=== PATIENT | female | born 1960 | race Caucasian/White ===

== ENCOUNTER 2017-04-18 14:37 | Inpatient (IN) | payer OTHER ==
[~2017-04-18] VITALS: Ht 152.4 cm; Wt 72.1 kg
--- NOTE | 2017-04-18 15:07 | ED GENERAL ADULT ---
History of Present Illness General Chief Complaint: General Adult Stated Complaint: TEARFUL AT [employer], UNABLE TO TELL WHY SHE IS HERE Source: patient, family Exam Limitations: language barrier Vital Signs & Intake/Output Vital Signs & Intake/Output Vital Signs Date Time Temp Pulse Resp B/P B/P Pulse O2 O2 Flow FiO2 Mean Ox Delivery Rate 04/18 2109 97.3 88 18 151/75 96 04/18 1939 98.6 104 18 141/65 96 Room Air 04/18 1739 97.4 101 16 167/80 97 Room Air 04/18 1443 98.0 105 18 156/97 97 Room Air Allergies Coded Allergies: NO KNOWN ALLERGIES (07/10/11) NKA PER ANTIBIOTIC ORDER SHEET (SJS) Reconcile Medications Calcium Carbonate/Vitamin D3 (Calcium 500 + D Tablet) (Unknown Strength) TABLET (Unknown Dose) PO DAILY SUPPLEMENT (Reported) Fish Oil/Dha/Epa (Fish Oil 1,200 MG Fish Oil) (Unknown Strength) CAPSULE ( Unknown Dose) PO DAILY SUPPLEMENT (Reported) Levothyroxine Sodium 112 MCG TABLET 1 TAB PO DAILY THYROID (Reported) Multivitamin (Multi-Day Vitamins) 1 EACH TABLET 1 TAB PO DAILY SUPPLEMENT ( Reported) Triage Note: PT TO ED C/O DIZZINESS. C/O NUMBNESS TO THE LEFT SIDE OF HER BODY AND PAIN AND NUMBNESS TO HER LEFT ARM THAT STARTED TODAY. PT TEARFUL IN TRIAGE. STATES SHE ALSO GETS PAINS TO THE RIGHT SIDE OF HER ABD X1 WEEK. PT NOTED TO BE MOVING HER LEFT ARM FINE WITH NO DIFFICULTY, ABLE TO GRASP ONTO THINGS. REPORTS THAT SHE FEELS PRESSURE TO HER HEAD INTERMITTENTLY AND THE DIZZINESS NOW ISNT BAD SHE STATES. Triage Nurses Notes Reviewed? yes Onset: Abrupt Duration: day(s): Timing: recent history HPI: 04/18/17 3:30 PM 57-year-old female presents to the emergency department complaining of left arm numbness, dizziness, epigastric abdominal pain, and nausea. She was apparently in her usual state of health until yesterday when the above symptoms started. The onset of the symptoms were abrupt. The duration of the symptoms is been approximately 24 hours. The severity is significant as his symptoms required her to come to the emergency department for care. Past History Travel History Traveled to [place] past 21 day No Medical History Any Pertinent Medical History? see below for history Surgical History Surgical History: none Psychosocial History Who do you live with Spouse Services at Home None What is your primary language Albanian Tobacco Use: Never used Family History Hx Contributory? No Review of Systems Review of Systems Constitutional: Reports: no symptoms. EENTM: Denies: blurred vision. Respiratory: Denies: short of breath. Cardiovascular: Denies: chest pain. GI: Reports: abdominal pain. Genitourinary: Reports: no symptoms. Musculoskeletal: Reports: no symptoms. Skin: Reports: no symptoms. Neurological/Psychological: Reports: no symptoms. Denies: weakness. Hematologic/Endocrine: Reports: no symptoms. Immunologic/Allergic: Reports: no symptoms. All Other Systems: Reviewed and Negative Physical Exam Physical Exam General Appearance: well developed/nourished, alert, awake, anxious, mild distress Head: atraumatic, normal appearance Eyes: Bilateral: normal appearance, PERRL, EOMI (NYSTAGMUS). Ears, Nose, Throat: normal pharynx, normal ENT inspection Neck: normal inspection, supple Respiratory: normal breath sounds, chest non-tender, no respiratory distress Cardiovascular: regular rate/rhythm, edema Peripheral Pulses: 4+ radial (R), 4+ radial (L) Gastrointestinal: soft, non-tender Back: normal range of motion Extremities: normal inspection, normal range of motion, no edema Neurologic/Psych: no motor/sensory deficits, awake, alert, oriented x 3 Skin: intact, normal color, warm/dry Core Measures ACS in differential dx? No CVA/TIA Diagnosis: No Severe Sepsis Present: No Septic Shock Present: No Progress Differential Diagnoses I considered the following diagnoses in my evaluation of the patient: [Aortic dissection, Cholecystitis, TIA, acute coronary syndrome, acute arterial occlusion, vestibular neuronitis, viral labyrinthitis, benign positional vertigo ] Plan of Care: Orders Procedure Date/time Status Heart Healthy Diet 04/19 B Active Add-on Test (ER Only) 04/18 2215 Active Patient Data 04/18 2212 Active URINALYSIS 04/[address] in observation 04/18 2156 Active Vital Signs 04/18 2156 Active Code Status 04/18 215 Active TROPONIN LEVEL 04/18 1822 Complete EKG 04/18 1822 Active TROPONIN LEVEL 04/18 1536 Complete COMPREHENSIVE METABOLIC PANEL 04/18 153 Complete CBC WITHOUT DIFFERENTIAL 04/18 153 Complete EKG 04/18 1536 Active Current Medications Sig/Germain Start time Last Medication Dose Stop Time Status Admin Sodium Chloride 1,000 ML ONCE ONE 04/18 1545 AC 04/18 (Normal Saline 0.9%) 04/18 2224 1650 Laboratory Tests 04/18/17 1842: Troponin I < 0.01 04/18/17 1635: Anion Gap 12, Estimated GFR > 60, BUN/Creatinine Ratio 38.0 H, Glucose 101 H, Calcium 9.2, Total Bilirubin 0.5, AST 24, ALT 30, Alkaline Phosphatase 85, Troponin I < 0.01, Total Protein 7.0, Albumin 4.4, Globulin 2.6, Albumin/ Globulin Ratio 1.7, CBC w Diff NO MAN DIFF REQ, RBC 4.58, MCV 91.4, MCH 30.8, RDW 13.4, MPV 7.6, Gran % 77.8 H, Lymphocytes % 15.2 L, Monocytes % 5.9, Eosinophils % 0.8, Basophils % 0.3, Absolute Granulocytes 9.2 H, Absolute Lymphocytes 1.8, Absolute Monocytes 0.7 H, Absolute Eosinophils 0.1, Absolute Basophils 0, PUBS MCHC 33.7 Labs were sent. The patient will be reevaluated (BARBIE GARCIA DO) Initial ED EKG: pending Departure Departure Disposition: STILL A PATIENT Condition: Stable Clinical Impression Primary Impression: TIA (transient ischemic attack) Secondary Impressions: Vertigo Referrals: NEELAM HUGHES,RISHABH Clarke (PCP/Family) Departure Forms: Customer Survey General Discharge Information Comments 04/18/17 8 pm The patient's CTA is negative for evidence of aortic dissection. She has unchanged EKG. Troponin is negative. Head CT negative. MPRESSION: 1. No acute vascular abnormality. No aortic dissection or aneurysm. 2. No acute findings in the chest, abdomen, or pelvis. No acute inflammatory changes. 3. Left upper pole hypoattenuating renal lesion is higher than simple fluid. Nonemergent renal ultrasound suggested to further evaluate. DICTATED BY: MAMI BUCHANAN MD DATE/TIME DICTATED:04/18/171750 QUALITY ASSURANCE COACH:MAICOL DATE/TIME TRANSCRIBED:04/18/171750 CONFIDENTIAL, DO NOT COPY WITHOUT APPROPRIATE AUTHORIZATION. <Electronically signed in Other Vendor System> SIGNED BY: MAMI BUCHANAN MD 04/18 8634 Observation Note Spoke With: CORRINE HUGHES,DIANA Physician Advisor Notified: TALHA HUGHES,LEONID Patel Place Patient In: Non-ED OBS Care Area Rationale for Observation: My rational for observation is as follows [the patient needs telemetry monitoring, MRI MRA in the a.m. She has ongoing vertigo and has states that she continues to have left arm numbness and had heaviness in the left leg and difficulty ambulating her symptoms started approximately 48 hours prior to arrival]. Critical Care Note Critical Care Note Critical Care Time: non-applicable
[2017-04-18] MEDS ORDERED: LEVOTHYROXINE112 MCG PO (15:58)
[2017-04-18] MEDS ORDERED: MULTI-DAY VITA1 EACH PO (15:58)
[2017-04-18] MEDS ORDERED: FISH OIL 1,2001 EACH PO (15:59)
[2017-04-18] MEDS ORDERED: CALCIUM 500 +1 EAC5 PO (15:59)
[2017-04-18 17:00] LABS: ABSOLUTE BASOPHIL COUNT 0 /CUMM (0.0-0.2); ABSOLUTE EOSINOPHIL COUNT 0.1 /CUMM (0.0-0.7); ABSOLUTE GRANULOCYTE CT 9.2 /CUMM (1.4-6.5); ABSOLUTE LYMPH COUNT 1.8 /CUMM (1.2-3.4); ABSOLUTE MONOCYTE COUNT 0.7 /CUMM (0.10-0.60); BASOPHIL % 0.3 % (0.0-2.0); EOSINOPHIL % 0.8 % (0-5); HEMATOCRIT 41.9 % (37-47); MEAN CORPUSCULAR HGB 30.8 PG (27.0-31.0); MEAN CORPUSCULAR HGB CONC 33.7 G/DL (33.0-37.0); MEAN CORPUSCULAR VOLUME 91.4 FL (81.0-99.0); MEAN PLATELET VOLUME 7.6 FL (7.4-10.4); PLATELET COUNT 248 /CUMM (130-400); RBC DISTRIBUTION WIDTH 13.4 % (11.5-14.5); RED BLOOD CELL CT 4.58 /CUMM (4.20-5.40); WHITE BLOOD CELL COUNT 11.8 /CUMM (4.8-10.8)
[2017-04-18 17:02] LABS: GRANULOCYTE % 77.8 % (42.2-75.2)
--- NOTE | 2017-04-18 18:03 | CT SCAN REPORT ---
STUDY PERFORMED: CTA OF THE CHEST, ABDOMEN AND PELVIS WITH AND WITHOUT CONTRAST CLINICAL INFORMATION: Near syncope. Left arm numbness. Epigastric pain. DESCRIPTION: Initial noncontrast CT of the chest was performed. Contrast timing was performed at the level of the distal descending thoracic aorta. Subsequently, arterial phase multidetector volumetric imaging was performed through the chest, abdomen and pelvis following the administration of 95 mL Optiray 350 intravenous contrast. No contrast reaction reported Sagittal and coronal reformatted images were obtained on the technologist workstation. Three-dimensional MIP reformatted imaging was performed and reviewed. Total exam dose-length product 1027 mGy-cm COMPARISON: None FINDINGS: Vascular: 1. Normal origin of the main coronary arteries. The ascending thoracic aorta is normal in course and caliber without dissection. 2. The aortic arch is normal in caliber without dissection. Normal 3 vessel branching configuration with the great vessels widely patent. 3. The descending thoracic aorta is normal in course and caliber without dissection. 4. The abdominal aorta is normal in course and caliber without dissection. 5. The origins of the celiac axis, superior mesenteric artery, and inferior mesenteric artery are widely patent. Single bilateral renal arteries are widely patent. 6. The iliac arteries and their branches are widely patent bilaterally. 7. No central pulmonary embolism. Nonvascular: CHEST: The central airways are patent. No focal or diffuse lung parenchymal abnormality. No pneumothorax or pleural effusion. The heart is of normal size. No pericardial effusion. No mediastinal lymphadenopathy. No axillary adenopathy or chest wall mass. ABDOMEN AND PELVIS: The liver is normal in size, shape, and attenuation. No focal hepatic lesion or biliary ductal dilatation is present. The gallbladder is unremarkable with no evidence of radiopaque gallstones, gallbladder wall thickening, or obvious pericholecystic inflammatory changes. The pancreas is normal in appearance. No mass or surrounding fluid. Adrenal glands are unremarkable. There is heterogeneous attenuation at the periphery of the spleen. This may be transient, related to the timing of contrast. No adjacent fluid. The kidneys are normal in size, shape, and attenuation. No hydronephrosis, hydroureter, or calculi. There is a 1.2 cm left upper pole hypoattenuating lesion which measures higher than simple fluid attenuation. Small hiatal hernia. The stomach is unremarkable. The small bowel is unremarkable. No obstruction. Normal appendix. No colonic wall thickening or inflammatory change. Scattered colonic diverticulosis. No diverticulitis. No hernia seen. No lymphadenopathy. The bladder is unremarkable. Uterus is not seen. No adnexal mass. BONY STRUCTURES: No acute or suspicious osseous abnormality. Degenerative changes of the spine. IMPRESSION: 1. No acute vascular abnormality. No aortic dissection or aneurysm. 2. No acute findings in the chest, abdomen, or pelvis. No acute inflammatory changes. 3. Left upper pole hypoattenuating renal lesion is higher than simple fluid. Nonemergent renal ultrasound suggested to further evaluate.
--- NOTE | 2017-04-18 18:53 | CT SCAN REPORT ---
EXAMINATION: CT HEAD WITHOUT CONTRAST CLINICAL INFORMATION: Dizziness. Headache. COMPARISON: None. TECHNIQUE: Contiguous axial imaging was performed from the skull base to vertex without intravenous contrast. DLP: 615 mGy-cm. FINDINGS: Although this examination is performed without contrast, a CT angiogram of the chest, abdomen, and pelvis was performed earlier in the day, approximately 3 hours prior. Residual contrast is present on this study. There is no evidence of acute intracranial hemorrhage or territorial infarction. No abnormal mass effect or midline shift is seen. Banks to white matter differentiation is well preserved. No definite extra-axial fluid collections are identified. No hydrocephalus. No significant volume loss. There is no abnormal attenuation within the brain parenchyma. The osseous structures and soft tissues are normal. The mastoid air cells are well-aerated. Mild opacification of all visualized paranasal sinuses. IMPRESSION: No acute intracranial pathology. Mild paranasal sinus opacification.
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
[2017-04-19 00:31] VITALS: BP 128/78
[2017-04-19 06:45] VITALS: BP 96/56
--- NOTE | 2017-04-19 07:45 | Patient Discharge Instructions ---
Discharge Instructions General Discharge Information You were seen/treated for: 1. CVA ( STROKE IN BASAL GANGLIA AND POSTERIOR CIRCULATION) WITH SYMPTOMS OF NUMBNESS AND TINGLING IN THE ARM AND VISUAL SYMPTOMS. 2. ABDOMINAL PAIN. Special Instructions: 1. BECCAE F/U WITH YOUR MAJOR GIFTS DIRECTOR WITH I WEEK OF DISCHARGE FOR OUTPATIENT VIJAY( TRANSESOPHAGEAL ECHO) AND 30 DAY HOLTER MONITOR. 2. PLEASE F/U WITH NEUROLOGY WITHIN 2 WEEKS OF DISCHARGE. 3.PLEASE F/U WITH YOUR GI DOCTOR WITHIN 2 WEEK OF DISCHARGE. 4. PLEASE F/U WITH PCP WITHIN 1 WEEK OF DISCHARGE. Diet Recommended Diet: Heart Healthy Activity Full Activity/No Limits: Yes ( TOLERATED) Acute Coronary Syndrome Inclusion Criteria At DC or during hospital stay patient has or had the following: ACS DIAGNOSIS No Discharge Core Measures Meds if any: Prescribed or Continued at Discharge Meds if any: NOT Prescribed or Continued at Discharge Congestive Heart Failure Inclusion Criteria At DC or during hospital stay patient has or had the following: CHF DIAGNOSIS No Discharge Core Measures Meds if any: Prescribed or Continued at Discharge Meds if any: NOT Prescribed or Continued at Discharge Cerebrovascular accident Inclusion Criteria At DC or during hospital stay patient has or had the following: CVA/TIA Diagnosis Yes Discharge Core Measures Meds if any: Prescribed or Continued at Discharge Antithrombotic Yes Statin (required if LDL =>70) Yes Anticoagulant No Meds if any: NOT Prescribed or Continued at Discharge Venous thromboembolism Inclusion Criteria VTE Diagnosis No VTE Type NONE VTE Confirmed by (Test) NONE Discharge Core Measures - Per Current guidelines, there needs to be overlap - treatment for the first 5 days of Warfarin therapy. - If discharged on Warfarin prior to 5 days of - overlap therapy, the patient will need to be - assessed for post discharge needs including - *Post discharge parental anticoagulation - *Warfarin and/or parental anticoagulation education - *Follow up date to check INR post discharge At least 5 days overlap therapy as Inpatient No Meds if any: Prescribed or Continued at Discharge Note: Overlap Therapy is Warfarin and Anticoagulant Meds if any: NOT Prescribed or Continued at Discharge
[2017-04-19 08:00] LABS: ABSOLUTE BASOPHIL COUNT 0 /CUMM (0.0-0.2); ABSOLUTE EOSINOPHIL COUNT 0.1 /CUMM (0.0-0.7); ABSOLUTE GRANULOCYTE CT 4.9 /CUMM (1.4-6.5); ABSOLUTE LYMPH COUNT 2.1 /CUMM (1.2-3.4); ABSOLUTE MONOCYTE COUNT 0.6 /CUMM (0.10-0.60); BASOPHIL % 0.3 % (0.0-2.0); EOSINOPHIL % 1.6 % (0-5); GRANULOCYTE % 62.8 % (42.2-75.2); HEMATOCRIT 39.9 % (37-47); MEAN CORPUSCULAR HGB 30.8 PG (27.0-31.0); MEAN CORPUSCULAR HGB CONC 33.6 G/DL (33.0-37.0); MEAN CORPUSCULAR VOLUME 91.7 FL (81.0-99.0); MEAN PLATELET VOLUME 7.4 FL (7.4-10.4); PLATELET COUNT 195 /CUMM (130-400); RBC DISTRIBUTION WIDTH 13.6 % (11.5-14.5); RED BLOOD CELL CT 4.35 /CUMM (4.20-5.40); WHITE BLOOD CELL COUNT 7.9 /CUMM (4.8-10.8)
--- NOTE | 2017-04-19 11:22 | ULTRASOUND REPORT ---
EXAMINATION: DUPLEX BILATERAL CAROTID ULTRASOUND CLINICAL INFORMATION: TIA/stroke. COMPARISON: None. TECHNIQUE: Duplex bilateral carotid US was performed using real-time ultrasound and Doppler techniques (integrating B-mode 2D vascular images, Doppler spectral analysis and color flow Doppler imaging). These techniques were utilized to interrogate the extracranial carotid and vertebral arteries bilaterally. The degree of stenosis is based off criteria similar to NASCET. FINDINGS: No plaque is seen at the carotid bifurcations or within the internal carotid arteries. All velocities are within normal limits. ADDITIONAL FINDINGS: The vertebral arteries show antegrade flow. The external carotid arteries show no significant stenosis. IMPRESSION: No evidence of a hemodynamically significant stenosis involving the internal carotid arteries.
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
--- NOTE | 2017-04-19 12:52 | MRI REPORT ---
EXAMINATION: MR BRAIN WITHOUT CONTRAST CLINICAL INFORMATION: Left-sided numbness. Assess for stroke/TIA. COMPARISON: CT scan of the head 04/18/2017. TECHNIQUE: MRI of the brain without contrast was obtained using routine sequences. FINDINGS: There are areas of restricted diffusion in the right parahippocampal gyrus extending into the posterior right basal ganglia, lateral to the right thalamus. These findings are consistent with areas of acute infarction. There is no evidence of hemorrhagic transformation. No other restricted diffusion is demonstrated. No mass effect or midline shift is seen. The ventricles and sulci commensurately prominent consistent with mild diffuse volume loss. There are also multiple scattered foci of increased T2 and FLAIR signal in the periventricular and subcortical white matter, consistent with sequelae of chronic microvascular ischemic disease. No extra-axial fluid collections are seen. The brainstem and cerebellum are normal. No pathologic magnetic susceptibility artifact is identified on the gradient refocused acquisition. The craniovertebral junction, marrow signal, and midline structures are normal. The major intracranial flow-voids at the level of the eklutna of Schmitt are preserved. The dural venous sinus flow-voids are maintained. The mastoid air cells are well-aerated. There is moderate mucoperiosteal thickening in the bilateral frontal, ethmoid, sphenoid and maxillary sinuses. The nasal septum is deviated to the right and there is a right-sided bony nasal septal spur. IMPRESSION: 1. There are areas of acute infarction in the right parahippocampal gyrus extending to the posterior right basal ganglia, without evidence of hemorrhagic transformation. 2. There are changes consistent with mild diffuse volume loss and there are sequelae of chronic microvascular ischemic. 3. This critical result was discussed with Josselyn Ravi by telephone on 04/19/2017 12:19 PM and it was ascertained that the content and urgency of the report was understood at the time of direct communication.
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
--- NOTE | 2017-04-19 13:59 | Event Note ---
Event Note Event Note: Patient was found to have an ischemic stroke in the right basal ganglia on MRI. Therefore the patient was converted into a full admission from an observation status.She has been started on aspirin 325, high-dose statin, IV fluids(low blood pressure) and neurology has been consulted. patient's echocardiogram result is still pending. She would require close monitoring on the case monitor to rule out arrhythmias/possible VIJAY and further imaging( CTA/MRA) might be required to find out the cause of stroke. PT/ OT evaluation have been ordered.
[2017-04-19 14:56] VITALS: BP 118/70
--- NOTE | 2017-04-19 15:44 | Cons- Neurology ---
General Information and HPI Consulting Request Date of Consult: 04/19/17 Requested By: TRIXIE PHILIP MD Reason for Consult: CVA Source of Information: patient, Resident MDs Exam Limitations: poor historian History of Present Illness: 57 year old woman with tells me she developed abdominal pain yesterday. Soon thereafter she became nauseous and vomited. Still a little later she rolls to walk into another room and felt dizzy as if she might pass out. Numbness of the left arm and leg developed but she is uncertain if this began concurrent with the dizziness or after. She still reports some numbness although symptoms have improved. Face was not involved. She denies any weakness or clumsiness and she denies neck pain or headache. There was no associated visual disturbance or confusion. CT of the head was done and unremarkable, MRI however was read as showing diffusion abnormalities through the parahippocampal gyrus up into the basal ganglia. On my personal review of the scan I do not see these abnormalities but I assume the radiologist probably has larger monitors with higher definition Allergies/Medications Allergies: Coded Allergies: NO KNOWN ALLERGIES (07/10/11) NKA PER ANTIBIOTIC ORDER SHEET (SJS) Home Med List: Calcium Carbonate/Vitamin D3 (Calcium 500 + D Tablet) (Unknown Strength) TABLET (Unknown Dose) PO DAILY SUPPLEMENT (Reported) Fish Oil/Dha/Epa (Fish Oil 1,200 MG Fish Oil) (Unknown Strength) CAPSULE ( Unknown Dose) PO DAILY SUPPLEMENT (Reported) Levothyroxine Sodium 112 MCG TABLET 1 TAB PO DAILY THYROID (Reported) Multivitamin (Multi-Day Vitamins) 1 EACH TABLET 1 TAB PO DAILY SUPPLEMENT ( Reported) Current Medications: Current Medications Sig/Germain Start time Last Medication Dose Route Stop Time Status Admin Acetaminophen 650 MG Q6P PRN 04/18 2300 AC PO Acetaminophen 1,000 MG ONCE ONE 04/18 1930 DC 04/18 IV 04/18 1931 1757 Acetaminophen 650 MG ONCE ONE 04/18 1845 DC PO 04/18 1846 Acetaminophen 0 .STK-MED ONE 04/18 1757 DC IV Aspirin 325 MG DAILY 04/19 1305 AC 04/19 PO 1410 Atorvastatin Calcium 40 MG 1700 04/19 1700 DC PO Atorvastatin Calcium 80 MG 1700 04/19 1700 AC PO Calcium/Vitamin D 500 MG DAILY 04/19 1000 AC 04/19 PO 1004 Dextrose/Sodium 1,000 ML Q20H 04/18 2315 AC 04/18 Chloride IV 04/19 1914 2309 Enoxaparin Sodium 40 MG DAILY 04/19 1000 AC 04/19 SC 1004 Ibuprofen 600 MG Q6P PRN 04/18 2300 AC 04/19 PO 0044 Levothyroxine Sodium 0.112 MG DAILY 04/19 1000 AC 04/19 PO 1004 Multivitamins 1 TAB DAILY 04/19 1000 AC 04/19 Therapeutic PO 1004 Ondansetron HCl 4 MG .STK-MED ONE 04/19 0015 DC IM 04/19 0016 Ondansetron HCl 4 MG ONCE ONE 04/18 2345 DC 04/19 IV 04/18 2346 0044 Sodium Chloride 1,000 ML BOLUS ONE 04/19 1345 AC 04/19 IV 04/19 1544 1410 Sodium Chloride 1,000 ML Q13H 04/19 1330 AC IV Sodium Chloride 1,000 ML ONCE ONE 04/18 1545 DC 04/18 IV 04/18 2224 1650 Review of Systems Review of Systems: ROS: A complete medical systems review was obtained. No pertinent complaints other than mentioned in the HPI were found. 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 Ambulation: independent IADLs Independent: shopping, housework, finances, transportation, medication admin. Exam & Diagnostic Data Vital Signs and I&O Vital Signs Date Time Temp Pulse Resp B/P B/P Pulse O2 O2 Flow FiO2 Mean Ox Delivery Rate 04/19 1456 98.9 84 18 118/70 96 Room Air 04/19 0645 98.2 78 18 96/56 95 Room Air 04/19 0031 97.8 109 20 128/78 93 Room Air 04/18 2243 98.0 81 16 135/78 96 Room Air 04/18 2109 97.3 88 18 151/75 96 04/18 1939 98.6 104 18 141/65 96 Room Air 04/18 1739 97.4 101 16 167/80 97 Room Air Intake & Output 04/19 1600 04/19 0800 04/19 0000 Intake Total 100 1000 Output Total Balance 100 1000 Intake, IV 1000 Intake, Oral 100 Patient 159 lb Weight Weight Reported by Patient Measurement Method Physical Exam: On exam the patient appeared generally well and in no distress. No carotid bruits and no cardiac murmur. No peripheral edema Mental status: Alert, attentive, fully oriented, no language errors, recall and general fund of knowledge seem intact Funduscopic unremarkable Visual mazariegos full , Eye movements full without nystagmus, pupils midsize equal round and reactive to light. Facial movement normal bilaterally Facial sensation normal bilaterally Hearing intact bilaterally Uvula elevates midline Tongue protrusion is midline Shoulder shrug symmetric Motor power and tone normal in all 4 extremities Sensation: Reports mild reduction in light touch and pin perception in the arm and leg on the left Tendon reflexes normal and symmetric without pathologic signs Coordination no ataxia Gait [testing deferred][normal] Last 48 Hours of Lab Results: Laboratory Tests 04/19 04/18 0640 2213 Chemistry Sodium (137 - 145 mmol/L) 141 Potassium (3.5 - 5.1 mmol/L) 3.8 Chloride (98 - 107 mmol/L) 106 Carbon Dioxide (22 - 30 mmol/L) 26 Anion Gap (5 - 16) 8 BUN (7 - 17 mg/dL) 14 Creatinine (0.5 - 1.0 mg/dL) 0.5 Estimated GFR (>60 ml/min) > 60 BUN/Creatinine Ratio (7 - 25 %) 28.0 H Hemoglobin A1c (4.2 - 5.8 %) 5.7 Triglycerides (<150 mg/dL) 139 Cholesterol (<200 MG/DL) 173 LDL Cholesterol, Calc (65 - 129 mg/dL) 104 HDL Cholesterol (40 - 60 mg/dL) 42 Cholesterol/HDL Ratio (0.00 - 4.23 %) 4 Vitamin B12 (239 - 931 pg/mL) 341 Hematology CBC w Diff NO MAN DIFF REQ WBC (4.8 - 10.8 /CUMM) 7.9 RBC (4.20 - 5.40 /CUMM) 4.35 Hgb (12.0 - 16.0 G/DL) 13.4 Hct (37 - 47 %) 39.9 MCV (81.0 - 99.0 FL) 91.7 MCH (27.0 - 31.0 PG) 30.8 RDW (11.5 - 14.5 %) 13.6 Plt Count (130 - 400 /CUMM) 195 MPV (7.4 - 10.4 FL) 7.4 Gran % (42.2 - 75.2 %) 62.8 Lymphocytes % (20.5 - 51.1 %) 27.3 Monocytes % (1.7 - 9.3 %) 8.0 Eosinophils % (0 - 5 %) 1.6 Basophils % (0.0 - 2.0 %) 0.3 Absolute Granulocytes (1.4 - 6.5 /CUMM) 4.9 Absolute Lymphocytes (1.2 - 3.4 /CUMM) 2.1 Absolute Monocytes (0.10 - 0.60 /CUMM) 0.6 Absolute Eosinophils (0.0 - 0.7 /CUMM) 0.1 Absolute Basophils (0.0 - 0.2 /CUMM) 0 PUBS MCHC (33.0 - 37.0 G/DL) 33.6 Urines Urinalysis LIGHT H Urine Color (YEL,AMB,STR) YEL Urine Clarity (CLEAR) CLEAR Urine pH (5.0 - 8.0) 6.0 Ur Specific [place] (1.001 - 1.035) 1.025 Urine Protein (NEG,<30 MG/DL) 30 H Urine Ketones (NEG) NEG Urine Nitrite (NEG) NEG Urine Bilirubin (NEG) NEG Urine Urobilinogen (0.1 - 1.0 EU/dl) 0.2 Ur Leukocyte Esterase (NEG) NEG Ur Microscopic SEDIMENT EXAMINED Urine RBC (0 - 5 /HPF) RARE Urine WBC (0 - 2 /HPF) RARE Ur Epithelial Cells (NONE,FEW) FEW Urine Crystals 3+ CA OX H Urine Bacteria (NEG/NONE) FEW H Urine Mucus (FEW,NONE) FEW Urine Hemoglobin (NEG) NEG Urine Glucose (N MG/DL) NEG 04/18 04/18 1842 1635 Chemistry Sodium (137 - 145 mmol/L) 141 Potassium (3.5 - 5.1 mmol/L) 4.0 Chloride (98 - 107 mmol/L) 104 Carbon Dioxide (22 - 30 mmol/L) 25 Anion Gap (5 - 16) 12 BUN (7 - 17 mg/dL) 19 H Creatinine (0.5 - 1.0 mg/dL) 0.5 Estimated GFR (>60 ml/min) > 60 BUN/Creatinine Ratio (7 - 25 %) 38.0 H Glucose (65 - 99 mg/dL) 101 H Calcium (8.4 - 10.2 mg/dL) 9.2 Total Bilirubin (0.2 - 1.3 mg/dL) 0.5 AST (14 - 36 U/L) 24 ALT (9 - 52 U/L) 30 Alkaline Phosphatase (<127 U/L) 85 Troponin I (< 0.11 ng/ml) < 0.01 < 0.01 Total Protein (6.3 - 8.2 g/dL) 7.0 Albumin (3.5 - 5.0 g/dL) 4.4 Globulin (1.9 - 4.2 gm/dL) 2.6 Albumin/Globulin Ratio (1.1 - 2.2 %) 1.7 TSH (0.270 - 4.200 uIU/mL) 1.090 Free T4 (0.64 - 1.79 ng/dL) 1.26 Total T3 (0.97 - 1.69 ng/mL) 1.07 Hematology CBC w Diff NO MAN DIFF REQ WBC (4.8 - 10.8 /CUMM) 11.8 H RBC (4.20 - 5.40 /CUMM) 4.58 Hgb (12.0 - 16.0 G/DL) 14.1 Hct (37 - 47 %) 41.9 MCV (81.0 - 99.0 FL) 91.4 MCH (27.0 - 31.0 PG) 30.8 RDW (11.5 - 14.5 %) 13.4 Plt Count (130 - 400 /CUMM) 248 MPV (7.4 - 10.4 FL) 7.6 Gran % (42.2 - 75.2 %) 77.8 H Lymphocytes % (20.5 - 51.1 %) 15.2 L Monocytes % (1.7 - 9.3 %) 5.9 Eosinophils % (0 - 5 %) 0.8 Basophils % (0.0 - 2.0 %) 0.3 Absolute Granulocytes (1.4 - 6.5 /CUMM) 9.2 H Absolute Lymphocytes (1.2 - 3.4 /CUMM) 1.8 Absolute Monocytes (0.10 - 0.60 /CUMM) 0.7 H Absolute Eosinophils (0.0 - 0.7 /CUMM) 0.1 Absolute Basophils (0.0 - 0.2 /CUMM) 0 PUBS MCHC (33.0 - 37.0 G/DL) 33.7 Imaging/Other Studies: MRI brain: 1. There are areas of acute infarction in the right parahippocampal gyrus extending to the posterior right basal ganglia, without evidence of hemorrhagic transformation. 2. There are changes consistent with mild diffuse volume loss and there are sequelae of chronic microvascular ischemic. Assessment/Plan Assessment: Left hemisensory deficit but otherwise completely normal bedside exam. MRI findings are out of proportion to the clinical picture, I will review images with the radiologist. The patient has been started on aspirin and a statin. Other than smoking she has no other modifiable vascular risks Recommendations: CTA or MRA of the intracranial circulation to rule out intracranial stenosis. Continue aspirin 81 MG daily and atorvastatin 40 MG daily Consult Acknowledgment - Thank you for your consult request.
--- NOTE | 2017-04-19 17:37 | ECHOCARDIOGRAM REPORT ---
ERYN CHÁVEZ Age: 57 : 1960 Gender: F Exam Date: 04/19/2017 09:06 Exam Location: [address] Ht (in): 60 Wt (lb): 159 BSA: 1.78 BP: 96 / 56 Ordering Physician: BIBI LO MD Referring Physician: BIBI LO MD Technologist: Camron Gipson [facility] Room Number: [id number] Indications: HYPERTENSION Rhythm: Sinus Technical Quality: Good FINDINGS Left Ventricle Normal left ventricular size, wall thickness and systolic function with no obvious regional wall motion abnormalities. Normal left ventricular diastolic filling pattern for age. The ejection fraction is visually estimated at >65 %. Right Ventricle The right ventricle is normal in size and function. Right Atrium The right atrium is normal in size. Left Atrium The left atrium is normal in size. The interatrial septum is intact. Mitral Valve The mitral valve is normal in structure and function. There is trace mitral regurgitation. Aortic Valve Structurally normal aortic valve without significant sclerosis or stenosis. There isno aortic regurgitation. Tricuspid Valve The tricuspid valve is normal in structure and function. There is trace tricuspid regurgitation. Unable to estimate the right ventricular systolic pressure. Pulmonic Valve Structurally normal pulmonic valve. There is no pulmonic regurgitation. Pericardium Normal pericardium without effusion. No pleural effusion. Great Vessels Normal aortic root dimension. The aortic arch and great vessels are well seen and are normal. CONCLUSIONS No significant chamber abnormalities. No significant valve abnormalities. Normal transthoracic echocardiogram. Physiologic valvular regurgitation. Curt Silveira M.D. (Electronically Signed) Final Date: 19 April 2017 17:37 MEASUREMENTS (Male / Female) Normal Values 2D ECHO LV Diastolic Diameter PLAX 3.9 cm 4.2 - 5.9 / 3.9 - 5.3 cm LV Systolic Diameter PLAX 2.8 cm 2.1 - 4.0 cm LV Fractional Shortening PLAX 28.2 % 25 - 46 % LV Ejection Fraction 2D Teich 55.2 % IVS Diastolic Thickness 1.1 cm LVPW Diastolic Thickness 1.0 cm LV Relative Wall Thickness 0.5 RV Internal Dim ED PLAX 2.8 cm 1.9 - 3.8 cm LVOT Diameter 1.8 cm Aortic Root Diameter 2.7 cm LA Systolic Diameter LX 2.4 cm 3.0 - 4.0 / 2.7 - 3.8 cm LA Volume 39.0 cm 18 - 58 / 22 - 52 cm Ascending Aorta Diameter 2.6 cm DOPPLER AV Peak Velocity 154.0 cm/s AV Peak Gradient 9.5 mmHg AV Mean Velocity 104.0 cm/s AV Mean Gradient 5.0 mmHg AV Velocity Time Integral 33.6 cm AI Deceleration [place] 107.0 cm/s AI Peak Velocity 319.0 cm/s AI Pressure Half Time 871.0 ms AI Peak Gradient 40.7 mmHg LVOT Peak Velocity 82.7 cm/s LVOT Peak Gradient 2.7 mmHg LVOT Mean Velocity 46.3 cm/s LVOT Mean Gradient 1.0 mmHg LVOT Velocity Time Integral 18.6 cm LVOT Stroke Volume 47.3 cm AV Area Cont Eq vti 1.4 cm AV Area Cont Eq pk 1.4 cm MV Peak Velocity 82.7 cm/s MV Peak Gradient 2.7 mmHg MV Mean Velocity 54.7 cm/s MV Mean Gradient 1.0 mmHg Mitral E Point Velocity 78.5 cm/s Mitral A Point Velocity 67.1 cm/s Mitral E to A Ratio 1.2 MV PHT Velocity 81.4 cm/s MV Deceleration [place] 310.0 cm/s MV Pressure Half Time 78.8 ms MV Area PHT 2.8 cm MV Deceleration Time 222.0 ms PV Peak Velocity 85.7 cm/s PV Peak Gradient 2.9 mmHg PV Mean Velocity 50.3 cm/s PV Mean Gradient 1.0 mmHg PV Velocity Time Integral 23.8 cm LV E' Lateral Velocity 11.4 cm/s Mitral E to LV E' Lateral Ratio 6.9 LV E' Septal Velocity 8.6 cm/s Mitral E to LV E' Septal Ratio 9.1
[2017-04-19 23:15] VITALS: BP 110/60
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
[2017-04-20 07:36] VITALS: BP 126/78
--- NOTE | 2017-04-20 12:06 | Cons- Cardiology ---
General Information and HPI Consulting Request Date of Consult: 04/20/17 Requested By: TRIXIE PHILIP MD Reason for Consult: Assess need for Holter monitoring in new subacute CVA patient Source of Information: patient, family Exam Limitations: no limitations History of Present Illness: This is a 57-year-old lady with hypothyroidism as the only past medical history , and a social history of 30 years of smoking presented with a one-day history of neurological deficits (left-sided hemiparesis of upper and lower extremity, dizziness and vertigo). On day of presentation, CT head did not show any acute intracranial pathology.However, MRI on 03/20 was remarkable for for acute infarction in the right parahippocampal gyrus extending to the posterior right basal ganglia and and a CTA head/neck on 03/21 noted a new cortical infarct involving the paramedian right septal lobe the next day. Carotid doppler and Echocardiogram on day of admission were unremarkable for any clinically significant stenosis, thrombus or valvular abnormality. No arrhythmias were noted on telemetry monitoring. CTA neck performed on 04/20/17 was suggestive of ascending aortic mural thrombus. Pertinent negative include no hx of STD, hyperlipidemia,hypercoagulable disease, CAD,vasculitis. Regarding family hx no family of history cardiac disease , malignancy, or hypercoagulable disorders either. Allergies/Medications Allergies: Coded Allergies: NO KNOWN ALLERGIES (07/10/11) NKA PER ANTIBIOTIC ORDER SHEET (SJS) Home Med List: Calcium Carbonate/Vitamin D3 (Calcium 500 + D Tablet) (Unknown Strength) TABLET (Unknown Dose) PO DAILY SUPPLEMENT (Reported) Fish Oil/Dha/Epa (Fish Oil 1,200 MG Fish Oil) (Unknown Strength) CAPSULE ( Unknown Dose) PO DAILY SUPPLEMENT (Reported) Levothyroxine Sodium 112 MCG TABLET 1 TAB PO DAILY THYROID (Reported) Multivitamin (Multi-Day Vitamins) 1 EACH TABLET 1 TAB PO DAILY SUPPLEMENT ( Reported) Past History Travel History Traveled to [place] past 21 day No Medical History Neurological: NONE EENT: NONE Cardiovascular: NONE Respiratory: NONE Gastrointestinal: NONE Hepatic: NONE Renal: NONE Musculoskeletal: NONE Psychiatric: NONE Endocrine: hypothyroidism Blood Disorders: NONE Cancer(s): NONE 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 Ambulation: independent IADLs Independent: shopping, housework, finances, transportation, medication admin. Exam & Diagnostic Data Vital Signs and I&O Vital Signs Date Time Temp Pulse Resp B/P B/P Pulse O2 O2 Flow FiO2 Mean Ox Delivery Rate 04/20 0736 99.1 79 16 126/78 95 Room Air 04/19 2315 98.4 83 18 110/60 93 Room Air 04/19 1456 98.9 84 18 118/70 96 Room Air Intake & Output 04/20 1600 04/20 0800 04/20 0000 04/19 1600 04/19 0800 04/19 0000 Intake Total 717 365 6489 100 1000 Output Total 1100 Balance 100 750 639 855 5435 Intake, IV 0 496 052 4224 Intake, Oral 100 650 500 100 Number 0 0 1 Bowel Movements Output, Urine 1100 Patient 72.121 kg Weight Weight Reported by Patient Measurement Method Physical Exam: General Appearance Alert, Oriented X3, Cooperative, No Acute Distress Skin No Rashes, No Breakdown Skin Temp/Moisture Exam: Warm/Dry HEENT Atraumatic, PERRLA, EOMI, Mucous Membr. moist/pink Neck Supple, No JVD Cardiovascular Regular Rate, Normal S1/S2, no m/g/r Lungs Clear to Auscultation, Normal Air Movement Abdomen Normal Bowel Sounds, Soft, No Tenderness, No Masses Neurological Normal Gait, Normal Speech, Strength at 5/5 X4 Ext, Normal Tone, Sensation slightly diminished on left side, Cranial Nerves 3-12 NL, Reflexes 2+ Extremities No Clubbing, No Cyanosis, No Edema, Normal Pulses Vascular Normal Pulses, Pulses Symmetrical Labs/Jeremy Results: Laboratory Tests 04/19 04/18 0640 2213 Chemistry Sodium (137 - 145 mmol/L) 141 Potassium (3.5 - 5.1 mmol/L) 3.8 Chloride (98 - 107 mmol/L) 106 Carbon Dioxide (22 - 30 mmol/L) 26 Anion Gap (5 - 16) 8 BUN (7 - 17 mg/dL) 14 Creatinine (0.5 - 1.0 mg/dL) 0.5 Estimated GFR (>60 ml/min) > 60 BUN/Creatinine Ratio (7 - 25 %) 28.0 H Hemoglobin A1c (4.2 - 5.8 %) 5.7 Triglycerides (<150 mg/dL) 139 Cholesterol (<200 MG/DL) 173 LDL Cholesterol, Calc (65 - 129 mg/dL) 104 HDL Cholesterol (40 - 60 mg/dL) 42 Cholesterol/HDL Ratio (0.00 - 4.23 %) 4 Vitamin B12 (239 - 931 pg/mL) 341 Hematology CBC w Diff NO MAN DIFF REQ WBC (4.8 - 10.8 /CUMM) 7.9 RBC (4.20 - 5.40 /CUMM) 4.35 Hgb (12.0 - 16.0 G/DL) 13.4 Hct (37 - 47 %) 39.9 MCV (81.0 - 99.0 FL) 91.7 MCH (27.0 - 31.0 PG) 30.8 RDW (11.5 - 14.5 %) 13.6 Plt Count (130 - 400 /CUMM) 195 MPV (7.4 - 10.4 FL) 7.4 Gran % (42.2 - 75.2 %) 62.8 Lymphocytes % (20.5 - 51.1 %) 27.3 Monocytes % (1.7 - 9.3 %) 8.0 Eosinophils % (0 - 5 %) 1.6 Basophils % (0.0 - 2.0 %) 0.3 Absolute Granulocytes (1.4 - 6.5 /CUMM) 4.9 Absolute Lymphocytes (1.2 - 3.4 /CUMM) 2.1 Absolute Monocytes (0.10 - 0.60 /CUMM) 0.6 Absolute Eosinophils (0.0 - 0.7 /CUMM) 0.1 Absolute Basophils (0.0 - 0.2 /CUMM) 0 PUBS MCHC (33.0 - 37.0 G/DL) 33.6 Urines Urinalysis LIGHT H Urine Color (YEL,AMB,STR) YEL Urine Clarity (CLEAR) CLEAR Urine pH (5.0 - 8.0) 6.0 Ur Specific [place] (1.001 - 1.035) 1.025 Urine Protein (NEG,<30 MG/DL) 30 H Urine Ketones (NEG) NEG Urine Nitrite (NEG) NEG Urine Bilirubin (NEG) NEG Urine Urobilinogen (0.1 - 1.0 EU/dl) 0.2 Ur Leukocyte Esterase (NEG) NEG Ur Microscopic SEDIMENT EXAMINED Urine RBC (0 - 5 /HPF) RARE Urine WBC (0 - 2 /HPF) RARE Ur Epithelial Cells (NONE,FEW) FEW Urine Crystals 3+ CA OX H Urine Bacteria (NEG/NONE) FEW H Urine Mucus (FEW,NONE) FEW Urine Hemoglobin (NEG) NEG Urine Glucose (N MG/DL) NEG 04/18 04/18 1842 1635 Chemistry Sodium (137 - 145 mmol/L) 141 Potassium (3.5 - 5.1 mmol/L) 4.0 Chloride (98 - 107 mmol/L) 104 Carbon Dioxide (22 - 30 mmol/L) 25 Anion Gap (5 - 16) 12 BUN (7 - 17 mg/dL) 19 H Creatinine (0.5 - 1.0 mg/dL) 0.5 Estimated GFR (>60 ml/min) > 60 BUN/Creatinine Ratio (7 - 25 %) 38.0 H Glucose (65 - 99 mg/dL) 101 H Calcium (8.4 - 10.2 mg/dL) 9.2 Total Bilirubin (0.2 - 1.3 mg/dL) 0.5 AST (14 - 36 U/L) 24 ALT (9 - 52 U/L) 30 Alkaline Phosphatase (<127 U/L) 85 Troponin I (< 0.11 ng/ml) < 0.01 < 0.01 Total Protein (6.3 - 8.2 g/dL) 7.0 Albumin (3.5 - 5.0 g/dL) 4.4 Globulin (1.9 - 4.2 gm/dL) 2.6 Albumin/Globulin Ratio (1.1 - 2.2 %) 1.7 TSH (0.270 - 4.200 uIU/mL) 1.090 Free T4 (0.64 - 1.79 ng/dL) 1.26 Total T3 (0.97 - 1.69 ng/mL) 1.07 Hematology CBC w Diff NO MAN DIFF REQ WBC (4.8 - 10.8 /CUMM) 11.8 H RBC (4.20 - 5.40 /CUMM) 4.58 Hgb (12.0 - 16.0 G/DL) 14.1 Hct (37 - 47 %) 41.9 MCV (81.0 - 99.0 FL) 91.4 MCH (27.0 - 31.0 PG) 30.8 RDW (11.5 - 14.5 %) 13.4 Plt Count (130 - 400 /CUMM) 248 MPV (7.4 - 10.4 FL) 7.6 Gran % (42.2 - 75.2 %) 77.8 H Lymphocytes % (20.5 - 51.1 %) 15.2 L Monocytes % (1.7 - 9.3 %) 5.9 Eosinophils % (0 - 5 %) 0.8 Basophils % (0.0 - 2.0 %) 0.3 Absolute Granulocytes (1.4 - 6.5 /CUMM) 9.2 H Absolute Lymphocytes (1.2 - 3.4 /CUMM) 1.8 Absolute Monocytes (0.10 - 0.60 /CUMM) 0.7 H Absolute Eosinophils (0.0 - 0.7 /CUMM) 0.1 Absolute Basophils (0.0 - 0.2 /CUMM) 0 PUBS MCHC (33.0 - 37.0 G/DL) 33.7 Diagnostic Data EKG Results No acute ischemic changes Other Results SERVICE DATE: 04/19/17-599 EXAM TYPE: MRI - MRI-HEAD W/O NOAH EXAMINATION: MR BRAIN WITHOUT CONTRAST CLINICAL INFORMATION: Left-sided numbness. Assess for stroke/TIA. COMPARISON: CT scan of the head 04/18/2017. TECHNIQUE: MRI of the brain without contrast was obtained using routine sequences. FINDINGS: There are areas of restricted diffusion in the right parahippocampal gyrus extending into the posterior right basal ganglia, lateral to the right thalamus. These findings are consistent with areas of acute infarction. There is no evidence of hemorrhagic transformation. No other restricted diffusion is demonstrated. No mass effect or midline shift is seen. The ventricles and sulci commensurately prominent consistent with mild diffuse volume loss. There are also multiple scattered foci of increased T2 and FLAIR signal in the periventricular and subcortical white matter, consistent with sequelae of chronic microvascular ischemic disease. No extra-axial fluid collections are seen. The brainstem and cerebellum are normal. No pathologic magnetic susceptibility artifact is identified on the gradient refocused acquisition. The craniovertebral junction, marrow signal, and midline structures are normal. The major intracranial flow-voids at the level of the [place] are preserved. The dural venous sinus flow-voids are maintained. The mastoid air cells are well-aerated. There is moderate mucoperiosteal thickening in the bilateral frontal, ethmoid, sphenoid and maxillary sinuses. The nasal septum is deviated to the right and there is a right-sided bony nasal septal spur. IMPRESSION: 1. There are areas of acute infarction in the right parahippocampal gyrus extending to the posterior right basal ganglia, without evidence of hemorrhagic transformation. 2. There are changes consistent with mild diffuse volume loss and there are sequelae of chronic microvascular ischemic. 3. This critical result was discussed with Josselyn Ravi by telephone on 04/19/2017 12:19 PM and it was ascertained that the content and urgency of the report was understood at the time of direct communication. DICTATED BY: MAYLIN SALES MD SERVICE DATE: 04/20/17- EXAM TYPE: CAT - CT HEAD ANGIOGRAM; CT NECK ANGIOGRAM EXAMINATION: CT HEAD ANGIOGRAM, CT NECK ANGIOGRAM CLINICAL INFORMATION: Evaluate for intracranial stenosis. Stroke and basal ganglia. COMPARISON: Brain MRI 04/19/2017. TECHNIQUE: Clockmaker images were obtained. A CT angiogram of the head and neck was performed in the arterial phase after the intravenous administration of 95 mL Optiray 320. Pre and delayed postcontrast images of the head were also obtained. MIP reconstructions were generated in multiple orientations at the acquisition workstation. Multiple three-dimensional surface rendered images and maximum intensity projection images were generated on a dedicated 3-D lab workstation. Total exam dose-length product 2554.99 mGy-cm FINDINGS: Head: Ill-defined foci of hypoattenuation involving the right inferolateral thalamus and the right parahippocampal gyrus coincide with the known ischemic changes demonstrated on the recent prior brain MRI from 04/19/2017. There is new loss of rowley-white matter differentiation involving the paramedian right occipital lobe consistent with a new cortical infarcts. There is no evidence of hemorrhagic transformation. No substantial intracranial mass effect and no midline shift. Lateral and third ventricles are normal. No hydrocephalus. Postcontrast images reveal no abnormal intracranial enhancement. The calvarium and skull base are intact. Mastoid air cells and middle ear cavities are well aerated. There is mild to moderate paranasal sinus disease. CT angiogram neck: There is an eccentric filling defect along the right lateral aspect of the ascending aortic arch best illustrated on axial image 68 of 614 series 3 that most likely represents a mural thrombus and potentially represents a source of embolic disease. The origins of the major aortic branches are widely patent. Common carotid arteries and carotid bifurcations are normal. There is no stenosis of the extracranial internal carotid arteries. The cervical segments of the vertebral arteries as well as their origins are widely patent. CT angiogram head: There is an occlusion within the P2 segment of the right posterior cerebral artery with partial reconstitution of contrast opacifying the distal vessels. The anterior, middle, and posterior cerebral artery complexes are otherwise normal. The intradural vertebral artery segments and basilar artery are patent. The intracranial internal carotid arteries are patent. Other: The thyroid tissue is atrophic which suggests a history of a thyroid ablation. There is a reduction of the right vocal fold with ballooning of the right laryngeal ventricle and asymmetric enlargement of the right piriform sinus. 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 There are no pathologically enlarged cervical lymph nodes. Grossly no worrisome soft tissue mass. Visualized lung apices are clear. IMPRESSION: The CT scan of the head reveals a new cortical infarct involving the paramedian right occipital lobe. This finding is superimposed upon known ischemic changes within the right parahippocampal gyrus and the right ventrolateral thalamus. No evidence of hemorrhagic transformation. No abnormal mass or enhancement is demonstrated on postcontrast images. The CT angiogram reveals an eccentric intraluminal filling defect along the right lateral margin of the ascending aorta that presumably represents a mural thrombus and this finding potentially represents the source of embolic disease. There is an occlusion within the P2 segment of the right posterior cerebral artery with partial reconstitution of distal opacification. Otherwise no high-grade stenosis or occlusion within the intracranial vessels. The extracranial vertebral arteries and carotid arteries are widely patent. Of note there are imaging manifestations consistent with paralysis of the right vocal cord therefore correlation with the patient's clinical history is recommended with regard to this finding. This critical result was discussed with Reyna Prajapati at 04/20/2017 12:23 PM and it was ascertained that the content and urgency of the report was understood at the time of direct communication. DICTATED BY: ERIK ESCALANTE MD SERVICE DATE: 04/20/17- EXAM TYPE: CAT - CT HEAD ANGIOGRAM; CT NECK ANGIOGRAM EXAMINATION: CT HEAD ANGIOGRAM, CT NECK ANGIOGRAM CLINICAL INFORMATION: Evaluate for intracranial stenosis. Stroke and basal ganglia. COMPARISON: Brain MRI 04/19/2017. TECHNIQUE: Clockmaker images were obtained. A CT angiogram of the head and neck was performed in the arterial phase after the intravenous administration of 95 mL Optiray 320. Pre and delayed postcontrast images of the head were also obtained. MIP reconstructions were generated in multiple orientations at the acquisition workstation. Multiple three-dimensional surface rendered images and maximum intensity projection images were generated on a dedicated 3-D lab workstation. Total exam dose-length product 2554.99 mGy-cm FINDINGS: Head: Ill-defined foci of hypoattenuation involving the right inferolateral thalamus and the right parahippocampal gyrus coincide with the known ischemic changes demonstrated on the recent prior brain MRI from 04/19/2017. There is new loss of row[place]-white matter differentiation involving the paramedian right occipital lobe consistent with a new cortical infarcts. There is no evidence of hemorrhagic transformation. No substantial intracranial mass effect and no midline shift. Lateral and third ventricles are normal. No hydrocephalus. Postcontrast images reveal no abnormal intracranial enhancement. The calvarium and skull base are intact. Mastoid air cells and middle ear cavities are well aerated. There is mild to moderate paranasal sinus disease. CT angiogram neck: There is an eccentric filling defect along the right lateral aspect of the ascending aortic arch best illustrated on axial image 68 of 614 series 3 that most likely represents a mural thrombus and potentially represents a source of embolic disease. The origins of the major aortic branches are widely patent. Common carotid arteries and carotid bifurcations are normal. There is no stenosis of the extracranial internal carotid arteries. The cervical segments of the vertebral arteries as well as their origins are widely patent. CT angiogram head: There is an occlusion within the P2 segment of the right posterior cerebral artery with partial reconstitution of contrast opacifying the distal vessels. The anterior, middle, and posterior cerebral artery complexes are otherwise normal. The intradural vertebral artery segments and basilar artery are patent. The intracranial internal carotid arteries are patent. Other: The thyroid tissue is atrophic which suggests a history of a thyroid ablation. There is a reduction of the right vocal fold with ballooning of the right laryngeal ventricle and asymmetric enlargement of the right piriform sinus. 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 There are no pathologically enlarged cervical lymph nodes. Grossly no worrisome soft tissue mass. Visualized lung apices are clear. IMPRESSION: The CT scan of the head reveals a new cortical infarct involving the paramedian right occipital lobe. This finding is superimposed upon known ischemic changes within the right parahippocampal gyrus and the right ventrolateral thalamus. No evidence of hemorrhagic transformation. No abnormal mass or enhancement is demonstrated on postcontrast images. The CT angiogram reveals an eccentric intraluminal filling defect along the right lateral margin of the ascending aorta that presumably represents a mural thrombus and this finding potentially represents the source of embolic disease. There is an occlusion within the P2 segment of the right posterior cerebral artery with partial reconstitution of distal opacification. Otherwise no high-grade stenosis or occlusion within the intracranial vessels. The extracranial vertebral arteries and carotid arteries are widely patent. Of note there are imaging manifestations consistent with paralysis of the right vocal cord therefore correlation with the patient's clinical history is recommended with regard to this finding. This critical result was discussed with Reyna Prajapati at 04/20/2017 12:23 PM and it was ascertained that the content and urgency of the report was understood at the time of direct communication. DICTATED BY: BORIS HUGHES,ERIK De La Torre Assessment/Plan Assessment/Plan This is a 57-year-old with past medical history of hypothyroidism, smoking history of more than 30 years 1 PPD, and no cardiac history presented with focal neurological deficits in the setting of radioligical finding of acute CVA (MRI, CTA) was not a candidate for tpa. Echocardiogram was unremarkable for any thrombus or valvular pathology, telemetry monitoring did not show any arrhythmias. However, CTA of head and neck performed on day 3 of admission was highly suggestive of ascending aortic mural thrombus. Impression * CVA * Aortic Mural thrombus * Hx of Hypothyroidism * Hx of tobacco use Plan Regarding patient's acute CVA, she is already medically optimized with a antiplatelet and statin therapy. The new findings suggestive of ascending aortic mural thrombus most likely explain the embolic source of patient's CVA finding, especially in the absence of any cardiogenic source and unremarkable carotid Doppler. Pt does have any extensive smoking hx that increases her risks. It is noted that the previous CTA on 04/18 did not show any acute pathology of the Aorta. An aortic mural thrombus in a normal appearing aorta is very rare. Most likely explanation is that the CTA that was performed on 03/19 was more focused on ruling out PE and therefore the contrast timing setup was not going to be sensisitve for aortic findings. Regarding anticoagulation for the mural thrombus, there is no conclusive evidence in favor of Heparin/anticoagulation. However, given the current acute evolving CVA with todays new finding of occipital stroke correlating with vision changes, discussion of Heparin anticoagulation may be warranted (risks vs benefit). Ideally a VIJAY, gated imaging is needed to fully asess the aorta and guide possible therapy.Will also reccomend thoracic surgery input for possible intervention such as endoluminal stent grafts, or segmental aortic resection incase of medical therapy failure. No Arythmias noted so far during hospital stay, pt will need arrangement for outpatient 30 day event monitoring. Problem List: 1. Hypothyroidism 2. Ischemic stroke diagnosed during current admission 3. Aortic thrombus Copies To: TRIXIE PHILIP MD Consult Acknowledgment - Thank you for your consult request.
--- NOTE | 2017-04-20 12:48 | CT SCAN REPORT ---
EXAMINATION: CT HEAD ANGIOGRAM, CT NECK ANGIOGRAM CLINICAL INFORMATION: Evaluate for intracranial stenosis. Stroke and basal ganglia. COMPARISON: Brain MRI 04/19/2017. TECHNIQUE: Sleeping Car Porter images were obtained. A CT angiogram of the head and neck was performed in the arterial phase after the intravenous administration of 95 mL Optiray 320. Pre and delayed postcontrast images of the head were also obtained. MIP reconstructions were generated in multiple orientations at the acquisition workstation. Multiple three-dimensional surface rendered images and maximum intensity projection images were generated on a dedicated 3-D lab workstation. Total exam dose-length product 2554.99 mGy-cm FINDINGS: Head: Ill-defined foci of hypoattenuation involving the right inferolateral thalamus and the right parahippocampal gyrus coincide with the known ischemic changes demonstrated on the recent prior brain MRI from 04/19/2017. There is new loss of rowley-white matter differentiation involving the paramedian right occipital lobe consistent with a new cortical infarcts. There is no evidence of hemorrhagic transformation. No substantial intracranial mass effect and no midline shift. Lateral and third ventricles are normal. No hydrocephalus. Postcontrast images reveal no abnormal intracranial enhancement. The calvarium and skull base are intact. Mastoid air cells and middle ear cavities are well aerated. There is mild to moderate paranasal sinus disease. CT angiogram neck: There is an eccentric filling defect along the right lateral aspect of the ascending aortic arch best illustrated on axial image 68 of 614 series 3 that most likely represents a mural thrombus and potentially represents a source of embolic disease. The origins of the major aortic branches are widely patent. Common carotid arteries and carotid bifurcations are normal. There is no stenosis of the extracranial internal carotid arteries. The cervical segments of the vertebral arteries as well as their origins are widely patent. CT angiogram head: There is an occlusion within the P2 segment of the right posterior cerebral artery with partial reconstitution of contrast opacifying the distal vessels. The anterior, middle, and posterior cerebral artery complexes are otherwise normal. The intradural vertebral artery segments and basilar artery are patent. The intracranial internal carotid arteries are patent. Other: The thyroid tissue is atrophic which suggests a history of a thyroid ablation. There is a reduction of the right vocal fold with ballooning of the right laryngeal ventricle and asymmetric enlargement of the right piriform sinus. 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 There are no pathologically enlarged cervical lymph nodes. Grossly no worrisome soft tissue mass. Visualized lung apices are clear. IMPRESSION: The CT scan of the head reveals a new cortical infarct involving the paramedian right occipital lobe. This finding is superimposed upon known ischemic changes within the right parahippocampal gyrus and the right ventrolateral thalamus. No evidence of hemorrhagic transformation. No abnormal mass or enhancement is demonstrated on postcontrast images. The CT angiogram reveals an eccentric intraluminal filling defect along the right lateral margin of the ascending aorta that presumably represents a mural thrombus and this finding potentially represents the source of embolic disease. There is an occlusion within the P2 segment of the right posterior cerebral artery with partial reconstitution of distal opacification. Otherwise no high-grade stenosis or occlusion within the intracranial vessels. The extracranial vertebral arteries and carotid arteries are widely patent. Of note there are imaging manifestations consistent with paralysis of the right vocal cord therefore correlation with the patient's clinical history is recommended with regard to this finding. This critical result was discussed with Reyna Prajapati at 04/20/2017 12:23 PM and it was ascertained that the content and urgency of the report was understood at the time of direct communication.
[2017-04-20 15:01] VITALS: BP 106/60
--- NOTE | 2017-04-20 17:37 | Discharge Summary ---
Visit Information Visit Dates Admission Date: 04/19/17 Discharge Date: 04/24/17 Hospital Course Course Attending Physician: TRIXIE PHILIP MD Primary Care Physician: NEELAM HUGHES,RISHABH Clarke Allergies: Coded Allergies: NO KNOWN ALLERGIES (07/10/11) NKA PER ANTIBIOTIC ORDER SHEET (SJS) Discharge Instructions Medications at Discharge Discharge Medications: Continue taking these medications: Levothyroxine Sodium (Levothyroxine Sodium) 112 MCG TABLET 1 Tablet ORAL DAILY Qty = 90 Comments: Last Taken:04/24/17 Time:9:16A.M Multivitamin (Multi-Day Vitamins) 1 EACH TABLET 1 Tablet ORAL DAILY Comments: Last Taken:04/24/17 Time:9:16A.M Fish Oil/Dha/Epa (Fish Oil 1,200 MG Fish Oil) (Unknown Strength) CAPSULE Unknown Dose ORAL DAILY Comments: NOT GIVEN TNIS ADMISSION Calcium Carbonate/Vitamin D3 (Calcium 500 + D Tablet) (Unknown Strength) TABLET Unknown Dose ORAL DAILY Comments: Last Taken:04/24/17 Time:9:16A.M Start taking the following new medications: Aspirin (Aspirin*) 81 MG TAB.CHEW 1 Tablet ORAL DAILY Qty = 30 No Refills Comments: Last Taken:04/24/17 Time:9:16A.M Clopidogrel Bisulfate (Plavix) 75 MG TABLET 1 Tablet ORAL DAILY Qty = 30 No Refills Comments: Last Taken:04/24/17 Time:9:16A.M Atorvastatin Calcium (Lipitor) 80 MG TABLET 1 Tablet ORAL DAILY Qty = 30 No Refills Comments: Last Taken:04/23/17 Time:4;24P.M Dicyclomine Hydrochloride (Bentyl) 10 MG CAPSULE 1 Capsule ORAL THREE TIMES DAILY as needed for ABDOMINAL PAIN Qty = 20 No Refills Comments: Last Taken:04/24/17 Time:9:16A.M Pantoprazole Sodium (Pantoprazole Sodium) 40 MG TABLET.DR 1 Tablet ORAL TWICE DAILY Qty = 60 No Refills Continue taking these medications: Levothyroxine Sodium (Levothyroxine Sodium) 112 MCG TABLET 1 Tablet ORAL DAILY Qty = 90 Multivitamin (Multi-Day Vitamins) 1 EACH TABLET 1 Tablet ORAL DAILY Fish Oil/Dha/Epa (Fish Oil 1,200 MG Fish Oil) (Unknown Strength) CAPSULE Unknown Dose ORAL DAILY Calcium Carbonate/Vitamin D3 (Calcium 500 + D Tablet) (Unknown Strength) TABLET Unknown Dose ORAL DAILY
--- NOTE | 2017-04-20 17:46 | Cons- Thoracic Surgery ---
General Information and HPI Consulting Request Date of Consult: 04/20/17 Requested By: TRIXIE PHILIP MD Reason for Consult: Evidence of embolic stroke in a patient with a filling defect of the ascending aorta and proximal aortic arch Source of Information: patient, old records, PCP Exam Limitations: no limitations History of Present Illness: The patient is a 57-year-old woman admitted with some abdominal complaints and findings of neurological deficits with some left-sided weakness dizziness and vertigo. 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 Thoracic cardiothoracic surgical evaluation is asked for management and treatment options. Allergies/Medications Allergies: Coded Allergies: NO KNOWN ALLERGIES (07/10/11) NKA PER ANTIBIOTIC ORDER SHEET (SJS) Home Med List: Calcium Carbonate/Vitamin D3 (Calcium 500 + D Tablet) (Unknown Strength) TABLET (Unknown Dose) PO DAILY SUPPLEMENT (Reported) Fish Oil/Dha/Epa (Fish Oil 1,200 MG Fish Oil) (Unknown Strength) CAPSULE ( Unknown Dose) PO DAILY SUPPLEMENT (Reported) Levothyroxine Sodium 112 MCG TABLET 1 TAB PO DAILY THYROID (Reported) Multivitamin (Multi-Day Vitamins) 1 EACH TABLET 1 TAB PO DAILY SUPPLEMENT ( Reported) Current Medications: Current Medications Sig/Germain Start time Last Medication Dose Route Stop Time Status Admin Acetaminophen 650 MG Q6P PRN 04/18 2300 AC PO Aspirin 81 MG DAILY 04/20 1000 AC 04/20 PO 1042 Atorvastatin Calcium 80 MG 1700 04/20 1700 AC 04/20 PO 1624 Atorvastatin Calcium 40 MG 1700 04/19 1630 DC 04/19 PO 1818 Calcium/Vitamin D 500 MG DAILY 04/19 1000 AC 04/20 PO 1042 Dextrose/Sodium 1,000 ML Q20H 04/18 2315 DC / Chloride IV 04/19 1914 2309 Enoxaparin Sodium 40 MG DAILY 04/19 1000 DC 04/20 SC 1042 Heparin Sodium 25,000 UNIT Q24H 04/20 1715 AC (Porcine) IV Sodium Chloride 500 ML Ibuprofen 600 MG Q6P PRN 04/18 2300 AC 04/20 PO 1042 Levothyroxine Sodium 0.112 MG DAILY 04/19 1000 AC 04/20 PO 1042 Multivitamins 1 TAB DAILY 04/19 1000 AC 04/20 Therapeutic PO 1042 Sodium Chloride 1,000 ML Q13H 04/19 1330 DC 04/19 IV 1820 Past History Medical History Neurological: NONE EENT: NONE Cardiovascular: NONE Respiratory: NONE Gastrointestinal: NONE Hepatic: NONE Renal: NONE Musculoskeletal: NONE Psychiatric: NONE Endocrine: hypothyroidism Blood Disorders: NONE Cancer(s): NONE 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 Ambulation: independent IADLs Independent: shopping, housework, finances, transportation, medication admin. Review of Systems Review of Systems: Patient is essentially without complaints currently. Her 12 point review of systems is unremarkable. Exam & Diagnostic Data Vital Signs and I&O Vital Signs Date Time Temp Pulse Resp B/P B/P Pulse O2 O2 Flow FiO2 Mean Ox Delivery Rate 04/20 1501 98.8 84 16 106/60 96 Room Air 04/20 0736 99.1 79 16 126/78 95 Room Air 04/19 2315 98.4 83 18 110/60 93 Room Air Intake & Output 04/20 1600 04/20 0800 04/20 0000 / 1600 04/19 0800 / 0000 Intake Total 839 830 2264 100 1000 Output Total 1100 Balance 100 750 728 441 8364 Intake, IV 0 955 359 0105 Intake, Oral 100 650 500 100 Number 0 0 1 Bowel Movements Output, Urine 1100 Patient 159 lb Weight Weight Reported by Patient Measurement Method Physical Exam: On physical examination she is standing by the bedside and appears well. Her skin is warm and well perfused no suspicious lesions noted. The sclerae are anicteric and mucous membranes are moist. There is no cervical or subclavicular lymphadenopathy. Her breath sounds are clear full bilaterally with no wheezes rhonchi noted. The cardiac exam shows a regular rhythm and rate with no murmurs or sounds. Her abdomen is soft and nontender with no masses. The periphery shows no cyanosis clubbing or edema. My neurologic exam shows grossly normal motor and sensory function. Imaging Results: CT scan of the head and neck shows a filling defect in the distal ascending aorta which is suspicious for mural thrombus. Carotid ultrasound and echocardiogram have shown no significant atherosclerosis. 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 It is possible that she has an isolated aortic ulcer which is led to some degree of thrombosis and is had atheroemboli from this area. However previous CT Ager Damián showed no abnormality in this area but this may have been obscured by some scatter from the superior vena cava. I'm not sure that aspirin at 81 mg a day is adequate antiplatelet therapy and I would give the patient [place]'s of for complete antiplatelet therapy. Anticoagulation in the situations is controversial and I leave that recommendation up to cardiology. The thoracic surgical literature gives only case reports of primary atherectomy in the situations and certainly there is no literature support of that approach. Certainly in patients who have cardiac surgery for other reasons such as valvular disease or coronary atherosclerosis there have been reports of aortic replacement with good outcomes. Personal experiences been a primary treatment of antiplatelet therapy and oftentimes this leads to a resolution of the filling defect. Better imaging will be necessary and I think a transesophageal echocardiogram would be a good start. This should give us a good view of the aorta and also allow us to rule out any intracardiac sources of emboli which would be much more common than an isolated aortic atheroma. I really can find no general literature support for surgical intervention in the situations. Recommendation is for more complete imaging and this may include either gated CT angiogram or gated MRI evaluation. Consult Acknowledgment - Thank you for your consult request.
--- NOTE | 2017-04-20 19:39 | PN- Neurology ---
Subjective Subjective: Left-sided weakness and numbness improving, Review of Systems: No headache no vertigo, Objective Vital Signs and I&Os Vital Signs Date Time Temp Pulse Resp B/P B/P Pulse O2 O2 Flow FiO2 Mean Ox Delivery Rate 04/20 1501 98.8 84 16 106/60 96 Room Air 04/20 0736 99.1 79 16 126/78 95 Room Air 04/19 2315 98.4 83 18 110/60 93 Room Air Intake & Output 04/20 1600 04/20 0800 / 0000 04/19 1600 04/19 0800 04/19 0000 Intake Total 165 752 6043 100 1000 Output Total 1100 Balance 100 750 807 387 5902 Intake, IV 0 224 368 1159 Intake, Oral 100 650 500 100 Number 0 0 1 Bowel Movements Output, Urine 1100 Patient 159 lb Weight Weight Reported by Patient Measurement Method Physical Exam: Alert, no dysarthria Extraocular movements full, pupils equal and reactive, visual mazairegos grossly intact No facial weakness Good strength upper and lower extremities Vague sense of diminished light touch sensation left upper extremity Current Medications: Current Medications Sig/Germain Start time Last Medication Dose Route Stop Time Status Admin Acetaminophen 650 MG Q6P PRN 04/18 2300 AC 04/20 PO 1907 Aspirin 81 MG DAILY 04/20 1000 AC 04/20 PO 1042 Atorvastatin Calcium 80 MG 1700 04/20 1700 AC 04/20 PO 1624 Atorvastatin Calcium 40 MG 1700 04/19 1630 DC 04/19 PO 1818 Calcium/Vitamin D 500 MG DAILY 04/19 1000 AC 04/20 PO 1042 Enoxaparin Sodium 40 MG DAILY 04/19 1000 DC 04/20 SC 1042 Heparin Sodium 25,000 UNIT Q24H 04/20 1715 AC 04/20 (Porcine) IV 1830 Sodium Chloride 500 ML Ibuprofen 600 MG Q6P PRN / 2300 AC 04/20 PO 1042 Levothyroxine Sodium 0.112 MG DAILY 04/19 1000 AC 04/20 PO 1042 Multivitamins 1 TAB DAILY 04/19 1000 AC 04/20 Therapeutic PO 1042 Sodium Chloride 1,000 ML Q13H 04/19 1330 DC 04/19 IV 1820 Results Recent Imaging Studies: CTA EXAM TYPE: CAT - CT HEAD ANGIOGRAM; CT NECK ANGIOGRAM EXAMINATION: CT HEAD ANGIOGRAM, CT NECK ANGIOGRAM CLINICAL INFORMATION: Evaluate for intracranial stenosis. Stroke and basal ganglia. COMPARISON: Brain MRI 04/19/2017. TECHNIQUE: Morning Babysitter images were obtained. A CT angiogram of the head and neck was performed in the arterial phase after the intravenous administration of 95 mL Optiray 320. Pre and delayed postcontrast images of the head were also obtained. MIP reconstructions were generated in multiple orientations at the acquisition workstation. Multiple three-dimensional surface rendered images and maximum intensity projection images were generated on a dedicated 3-D lab workstation. Total exam dose-length product 2554.99 mGy-cm FINDINGS: Head: Ill-defined foci of hypoattenuation involving the right inferolateral thalamus and the right parahippocampal gyrus coincide with the known ischemic changes demonstrated on the recent prior brain MRI from 04/19/2017. There is new loss of rowley-white matter differentiation involving the paramedian right occipital lobe consistent with a new cortical infarcts. There is no evidence of hemorrhagic transformation. No substantial intracranial mass effect and no midline shift. Lateral and third ventricles are normal. No hydrocephalus. Postcontrast images reveal no abnormal intracranial enhancement. The calvarium and skull base are intact. Mastoid air cells and middle ear cavities are well aerated. There is mild to moderate paranasal sinus disease. CT angiogram neck: There is an eccentric filling defect along the right lateral aspect of the ascending aortic arch best illustrated on axial image 68 of 614 series 3 that most likely represents a mural thrombus and potentially represents a source of embolic disease. The origins of the major aortic branches are widely patent. Common carotid arteries and carotid bifurcations are normal. There is no stenosis of the extracranial internal carotid arteries. The cervical segments of the vertebral arteries as well as their origins are widely patent. CT angiogram head: There is an occlusion within the P2 segment of the right posterior cerebral artery with partial reconstitution of contrast opacifying the distal vessels. The anterior, middle, and posterior cerebral artery complexes are otherwise normal. The intradural vertebral artery segments and basilar artery are patent. The intracranial internal carotid arteries are patent. Other: The thyroid tissue is atrophic which suggests a history of a thyroid ablation. There is a reduction of the right vocal fold with ballooning of the right laryngeal ventricle and asymmetric enlargement of the right piriform sinus. 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 There are no pathologically enlarged cervical lymph nodes. Grossly no worrisome soft tissue mass. Visualized lung apices are clear. IMPRESSION: The CT scan of the head reveals a new cortical infarct involving the paramedian right occipital lobe. This finding is superimposed upon known ischemic changes within the right parahippocampal gyrus and the right ventrolateral thalamus. No evidence of hemorrhagic transformation. No abnormal mass or enhancement is demonstrated on postcontrast images. The CT angiogram reveals an eccentric intraluminal filling defect along the right lateral margin of the ascending aorta that presumably represents a mural thrombus and this finding potentially represents the source of embolic disease. There is an occlusion within the P2 segment of the right posterior cerebral artery with partial reconstitution of distal opacification. Otherwise no high-grade stenosis or occlusion within the intracranial vessels. The extracranial vertebral arteries and carotid arteries are widely patent. Of note there are imaging manifestations consistent with paralysis of the right vocal cord therefore correlation with the patient's clinical history is recommended with regard to this finding. This critical result was discussed with Reyna Prajapati at 04/20/2017 12:23 PM and it was ascertained that the content and urgency of the report was understood at the time of direct communication. DICTATED BY: BORIS HUGHES,ERIK De La Torre DATE/TIME DICTATED:04/20/171208 PERSONAL BANKER:MAICOL DATE/TIME TRANSCRIBED:04/20/171208 CONFIDENTIAL, DO NOT COPY WITHOUT APPROPRIATE AUTHORIZATION. <Electronically signed in Other Vendor System> Assessment/Plan Assessment: Cerebral vascular accident Possible source secondary to aortic thrombus Plan: Treatment options largely based on opinion rather than controlled trials A course of dual antiplatelet therapy is reasonable for a period of time Follow-up probably easiest with VIJAY should cardiology concur A 30 day groundwater monitoring technician for the possibility of paroxysmal atrial fibrillation should also be considered Treatment options were discussed extensively with patient and patient's family Vascular consultation appreciated
[2017-04-20 22:21] VITALS: BP 104/52
[2017-04-21 01:39] LABS: PTT 81 SEC (25-37)
[2017-04-21 07:47] VITALS: BP 122/78
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
--- NOTE | 2017-04-21 13:42 | ULTRASOUND REPORT ---
EXAMINATION: US ABDOMEN LIMITED CLINICAL INFORMATION: Abdominal pain. COMPARISON: None TECHNIQUE: Real-time imaging of the right upper quadrant abdominal viscera. FINDINGS: PANCREAS: Not well visualized LIVER: Normal. The liver demonstrates normal size, contour and echogenicity. No focal lesion or intrahepatic biliary duct dilatation. GALLBLADDER: Normal. The gallbladder is physiologically distended without evidence of stones, sludge, polyps, wall thickening or pericholecystic fluid. COMMON BILE DUCT: Normal in caliber measuring 0.5 cm in diameter. RIGHT KIDNEY: Normal. No hydronephrosis. No renal calculi or focal parenchymal lesions. The kidney measures 10.6 cm in maximum dimension. FREE FLUID: None. IMPRESSION: Limited visualization of the pancreas otherwise unremarkable exam.
--- NOTE | 2017-04-21 13:55 | PN- Cardiology ---
Subjective Subjective: Stable except for persistent abdominal discomfort. No cardiac symptoms. No significant arrhythmias noted on the monitor. Objective Vital Signs and I&Os Vital Signs Date Time Temp Pulse Resp B/P B/P Pulse O2 O2 Flow FiO2 Mean Ox Delivery Rate 04/21 0747 98.4 80 20 122/78 96 Room Air 04/20 2221 98.2 62 20 104/52 95 Room Air 04/20 1501 98.8 84 16 106/60 96 Room Air Intake & Output 04/21 1600 04/21 0804/21 0000 04/20 1600 04/20 0804/20 0000 Intake Total 90 120 100 750 Output Total Balance 90 120 100 750 Intake, IV 40 0 100 Intake, Oral 50 120 100 650 Number 0 0 Bowel Movements Current Medications: Current Medications Sig/Germain Start time Last Medication Dose Route Stop Time Status Admin Acetaminophen 650 MG .STK-MED ONE 04/20 190 DC PO 04/20 190 Acetaminophen 650 MG Q6P PRN 04/18 2300 AC 04/21 PO 0651 Aspirin 81 MG DAILY 04/20 1000 AC 04/21 PO 0912 Atorvastatin Calcium 80 MG 1700 04/20 1700 AC 04/20 PO 1624 Bisacodyl 5 MG DAILY 04/21 1000 AC PO Bisacodyl 5 MG ONE ONE 04/20 2345 DC 04/21 PO 04/20 2346 0651 Calcium/Vitamin D 500 MG DAILY 04/19 1000 AC 04/21 PO 0912 Clopidogrel Bisulfate 75 MG DAILY 04/20 2126 AC 04/21 PO 0912 Enoxaparin Sodium 40 MG DAILY 04/19 1000 DC 04/20 SC 1042 Heparin Sodium 25,000 UNIT Q24H 04/20 1715 DC 04/20 (Porcine) IV 1830 Sodium Chloride 500 ML Ibuprofen 600 MG Q6P PRN 04/18 2300 AC 04/20 PO 1042 Levothyroxine Sodium 0.112 MG DAILY 04/19 1000 AC 04/21 PO 0912 Multivitamins 1 TAB DAILY 04/19 1000 AC 04/21 Therapeutic PO 0912 Polyethylene Glycol 17 GM DAILY 04/20 1943 AC 04/20 PO 2120 Senna 187 MG AT BEDTIME 04/20 2200 AC 04/20 PO 2120 Results Last 48 Hrs of Labs/Mics: Laboratory Tests 04/21/17 0020: APTT 81 H Assessment/Plan Assessment/Plan Impression: 1. CVA; right parahippocampal gyrus/right posterior basal ganglia; right occipital lobe. 2. Possible intraluminal filling defect in distal descending thoracic aorta below the innominate artery consistent with plaque, thrombus, etc. 3. History of hypothyroidism 4. History of tobacco use 5. Persistent abdominal discomfort Recommendations: -Continue dual antiplatelet therapy for now. -Await further neurology input -Stop IV heparin -The patient will clearly need further imaging. -At some point, the patient will need a transesophageal echocardiogram to better assess for other evidence of thoracic aortic plaque, intracavitary mass or thrombus, intracardiac shunting, etc. to rule out other potential causes of embolism. -The patient will also eventually need extended event monitoring to rule out occult arrhythmias -The patient will need further imaging of the thoracic aorta to better define the descending aorta/proximal aortic arch, etc. This will likely need to be either a gated CT or gated MRI, either which will need to be performed at a facility other than [facility] where these are not available. -The timing of these tests will need to be discussed further. -Consider a follow-up head CT or MRI in 24 hours to rule out the possibility of recurrent, silent events. If a follow-up evaluation shows any evidence of new lesions, then all of the aforementioned evaluation should be performed at an inpatient and the patient may well require transfer to another facility for these testing -Otherwise, the patient could have a VIJAY performed here on Sunday or as an outpatient. Continue telemetry? Yes
[2017-04-21 14:57] VITALS: BP 110/84
[2017-04-21 22:24] VITALS: BP 100/80
[2017-04-22 06:59] VITALS: BP 100/76
--- NOTE | 2017-04-22 08:52 | PN- Cardiology ---
Subjective Subjective: Patient sleeping quietly at the time of my visit. Per the nurses, no new cardiac or neurologic issues. Currently undergoing further evaluation for abdominal discomfort. Objective Vital Signs and I&Os Vital Signs Date Time Temp Pulse Resp B/P B/P Pulse O2 O2 Flow FiO2 Mean Ox Delivery Rate 04/22 0659 98.0 74 18 100/76 93 Nasal Cannula 04/21 2224 97.9 97 14 100/80 97 Room Air 04/21 1457 98.3 88 20 110/84 93 Room Air Intake & Output 04/22 1600 04/22 0800 04/22 0000 04/21 1600 04/21 0000 Intake Total 338.8 90 120 Output Total Balance 338.8 90 120 Intake, IV 98.8 40 Intake, Oral 240 50 120 Number 1 Bowel Movements Physical Exam: General Appearance Alert, Oriented X3, Cooperative, No Acute Distress Skin No Rashes, No Breakdown Skin Temp/Moisture Exam: Warm/Dry HEENT Atraumatic, PERRLA, EOMI, Mucous Membr. moist/pink Neck Supple, No JVD Cardiovascular Regular Rate, Normal S1/S2, no m/g/r Lungs Clear to Auscultation, Normal Air Movement Abdomen Normal Bowel Sounds, Soft, No Tenderness, No Masses Neurological Normal Gait, Normal Speech, Strength at 5/5 X4 Ext, Normal Tone, Sensation slightly diminished on left side, Cranial Nerves 3-12 NL, Reflexes 2+ Extremities No Clubbing, No Cyanosis, No Edema, Normal Pulses Vascular Normal Pulses, Pulses Symmetrical Current Medications: Current Medications Sig/Germain Start time Last Medication Dose Route Stop Time Status Admin Acetaminophen 650 MG Q6P PRN 04/18 2300 AC 04/21 PO 0651 Aspirin 81 MG DAILY 04/20 1000 AC 04/21 PO 09 Atorvastatin Calcium 80 MG 1700 04/20 1700 AC 04/21 PO 1723 Bisacodyl 5 MG DAILY 04/21 1000 AC PO Calcium/Vitamin D 500 MG DAILY 04/19 1000 AC 04/21 PO 911 Clopidogrel Bisulfate 75 MG DAILY 04/20 2126 AC 04/21 PO 911 Heparin Sodium 25,000 UNIT Q24H 04/20 1715 DC 04/20 (Porcine) IV 1830 Sodium Chloride 500 ML Ibuprofen 600 MG .STK-MED ONE 04/21 2127 DC PO 04/21 2128 Ibuprofen 600 MG Q6P PRN 04/18 2300 AC 04/21 PO 212 Levothyroxine Sodium 0.112 MG DAILY 04/19 1000 AC 04/21 PO 09 Multivitamins 1 TAB DAILY 04/19 1000 AC 04/21 Therapeutic PO 09 Polyethylene Glycol 17 GM DAILY 04/20 1943 AC 04/20 PO 212 Senna 187 MG AT BEDTIME 04/20 2200 AC 04/21 PO 2115 Results Last 48 Hrs of Labs/Mics: Laboratory Tests 04/22/17 0754: Anion Gap 9, Estimated GFR > 60, BUN/Creatinine Ratio 25.0 04/21/17 0020: APTT 81 H Assessment/Plan Assessment/Plan Impression: 1. CVA; right parahippocampal gyrus/right posterior basal ganglia; right occipital lobe. 2. Possible intraluminal filling defect in distal descending thoracic aorta below the innominate artery consistent with plaque, thrombus, etc. 3. History of hypothyroidism 4. History of tobacco use 5. Persistent abdominal discomfort Recommendations: -Continue dual antiplatelet therapy for now. -Await further neurology input -Continue work up for etiology of abdominal discomfort -Follouwp head CT results pending. -Further decision about timing of VIJAY and gated CT or MRI (? as outpatient) after the above results are available. Continue telemetry? Yes
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
--- NOTE | 2017-04-22 11:34 | CT SCAN REPORT ---
EXAMINATION: CT HEAD WITHOUT CONTRAST CLINICAL INFORMATION: Visual changes. COMPARISON: 04/18/2017 and 04/20/2017 TECHNIQUE: Contiguous axial imaging was performed from the skull base to vertex without intravenous administration of contrast. DLP: 612 mGy-cm FINDINGS: There is hypoattenuation from infarcts in evolution involving the right parahippocampal gyrus and medial right occipital lobe without hemorrhagic transformation or mass effect. There is no midline shift or other new finding compared to the recent prior exam of 04/20/2017. The ventricles have normal size and configuration. No extra-axial fluid collections. The calvarium is intact and the mastoid air cells and middle ear cavities are well aerated. There are frothy secretions within the left maxillary sinus and some layering secretions are seen along the posterior wall of the right maxillary sinus. Also, there is partial opacification of inferior frontal and bilateral ethmoid air cells. The orbits, globes and temporomandibular joints are unremarkable. IMPRESSION: No evidence of hemorrhagic transformation of the previously noted infarctions involving the medial right temporal lobe (parahippocampal gyrus) and medial right occipital lobe. No new, acute findings compared to 04/20/2017.
[2017-04-22 14:53] VITALS: BP 114/78
--- NOTE | 2017-04-22 17:14 | CT SCAN REPORT ---
EXAMINATION: CT ABDOMEN AND PELVIS WITH CONTRAST CLINICAL INFORMATION: Right lower quadrant pain. COMPARISON: Ultrasound abdomen 04/21/[address] abdomen pelvis 04/18/2017. TECHNIQUE: Multidetector volumetric imaging was performed of the abdomen and pelvis before and after the IV administration of 94 mL of Optiray 320 intravenous contrast. Sagittal and coronal reformatted images were obtained on the technologist's workstation. DLP: 450 mGy-cm FINDINGS: LUNG BASES: The visualized lung bases are unremarkable. LIVER, GALLBLADDER, AND BILIARY TREE: The liver is normal in size, shape, and attenuation. No focal hepatic lesion or biliary ductal dilatation is present. The gallbladder is unremarkable with no evidence of radiopaque gallstones, gallbladder wall thickening, or obvious pericholecystic inflammatory changes. PANCREAS: Unremarkable. SPLEEN: The 2.4 x 1.7 cm nonenhancing area along the posterior inferior tip of spleen unchanged from 04/18/2017 exam. This could be related to flow phenomena or an atypical hemangioma rest of the spleen is unremarkable. ADRENAL GLANDS: Unremarkable. KIDNEYS AND URETERS: The kidneys are normal in size, shape, and attenuation. No hydronephrosis, hydroureter, or calculi seen. No perinephric stranding. There are nonenhancing upper and lower pole cortex left kidney lesions the upper pole lesion is higher attenuation 32 Hounsfield units and lower pole lesion measures water density. BLADDER: Unremarkable. GASTROINTESTINAL TRACT: There is scattered stool seen throughout the colon most concentrated in the cecum and ascending colon. There is no colonic distention. The small bowel loops are normal caliber. Appendix is normal caliber. No inflammatory process seen in the right lower quadrant No free air or free fluid seen. ABDOMINAL WALL: No significant hernia is appreciated. LYMPH NODES: Normal. VASCULAR: Unremarkable. PELVIC VISCERA: There is no free air or free fluid. Several scattered phleboliths are seen in the right pelvis. OSSEOUS STRUCTURES: There is no lytic or sclerotic process seen. IMPRESSION: No acute intra-abdominal process seen. Moderate stool in the cecum and right colon. There is no bowel distention. The seen. Simple cyst lower pole and indeterminate high attenuation lesion upper pole left kidney. These are unchanged to previous CTA study. Small none enhancing lesion in spleen. It is stable. Differential diagnoses includes probably related to contrast flow phenomena or atypical hemangioma. It is stable.
[2017-04-22 21:55] VITALS: BP 112/72
[2017-04-23 07:28] VITALS: BP 100/62
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
--- NOTE | 2017-04-23 10:40 | PN- Cardiology ---
Subjective Subjective: The patient continues to complain of right-sided abdominal discomfort. No new neurologic symptoms. No chest pain. No shortness of breath. No palpitations. Objective Vital Signs and I&Os Vital Signs Date Time Temp Pulse Resp B/P B/P Pulse O2 O2 Flow FiO2 Mean Ox Delivery Rate 04/23 08 95 Room Air 04/23 0728 98.4 79 18 100/62 95 Room Air 04/22 2155 98.0 79 18 112/72 96 / 1453 98.3 78 18 114/78 958 Room Air Intake & Output 04/23 1600 04/23 0804/23 0000 04/22 1600 04/22 0804/22 0000 Intake Total 200 480 480 Output Total 400 Balance -200 480 480 Intake, Oral 200 480 480 Output, Urine 400 Physical Exam: Gen: NAD HEENT: normal Lungs: clear to auscultation, normal resp. effort Heart: RRR, S1, S2, no murmurs Abdomen: Soft, nontender, no masses Extremities: No clubbing, cyanosis, or edema. Neuro: Alert and oriented x 3, cranial nerves intact Current Medications: Current Medications Sig/Germain Start time Last Medication Dose Route Stop Time Status Admin Acetaminophen 650 MG .STK-MED ONE 04/22 2059 DC PO 04/22 2100 Acetaminophen 650 MG Q6P PRN 04/18 2300 AC 04/22 PO 2057 Aspirin 81 MG DAILY 04/20 1000 AC 04/23 PO 928 Atorvastatin Calcium 80 MG 1700 04/20 1700 AC 04/22 PO 171 Bisacodyl 5 MG DAILY 04/21 1000 AC 04/23 PO 09 Calcium/Vitamin D 500 MG DAILY 04/19 1000 AC 04/23 PO 09 Clopidogrel Bisulfate 75 MG DAILY 04/20 2126 AC 04/23 PO 09 Ibuprofen 600 MG .STK-MED ONE 04/22 2057 DC PO 04/22 2058 Ibuprofen 600 MG .STK-MED ONE 04/22 1715 DC PO 04/22 1716 Ibuprofen 600 MG Q6P PRN 04/18 2300 AC 04/23 PO 0930 Levothyroxine Sodium 0.112 MG DAILY 04/19 1000 AC 04/23 PO 0929 Multivitamins 1 TAB DAILY 04/19 1000 AC 04/23 Therapeutic PO 09 Polyethylene Glycol 17 GM DAILY 04/20 1943 AC 04/23 PO 09 Senna 187 MG AT BEDTIME 04/20 2200 AC 04/21 PO 2115 Results Last 48 Hrs of Labs/Mics: Laboratory Tests 04/22/17 1240: Lactic Acid 1.3 04/22/17 0754: Anion Gap 9, Estimated GFR > 60, BUN/Creatinine Ratio 25.0, Lactate Dehydrogenase Pending 04/21/17 1200: APTT Cancelled Recent Imaging Studies: Head CT: No evidence of hemorrhagic transformation of the previously noted infarctions involving the medial right temporal lobe (parahippocampal gyrus) and medial right occipital lobe. No new, acute findings compared to 04/20/2017. Abdominal CT: No acute intra-abdominal process seen. Moderate stool in the cecum and right colon. There is no bowel distention. The seen. Simple cyst lower pole and indeterminate high attenuation lesion upper pole left kidney. These are unchanged to previous CTA study. Small none enhancing lesion in spleen. It is stable. Differential diagnoses includes probably related to contrast flow phenomena or atypical hemangioma. It is stable. Assessment/Plan Assessment/Plan Impression: 1. CVA; right parahippocampal gyrus/right posterior basal ganglia; right occipital lobe. 2. Possible intraluminal filling defect in distal descending thoracic aorta below the innominate artery consistent with plaque, thrombus, etc. 3. History of hypothyroidism 4. History of tobacco use 5. Persistent abdominal discomfort Recommendations: * Continue aspirin, Plavix, and high-dose statin * Follow neurology recommendations for CVA * Follow up with Dr. Childress in one week after discharge. * VIJAY as outpatient. * 30 day night monitor as outpatient. Continue telemetry? Yes
[2017-04-23 15:11] VITALS: BP 110/60
--- NOTE | 2017-04-23 15:12 | Cons- Gastroenterology ---
General Information and HPI Consulting Request Date of Consult: 04/23/17 Requested By: TRIXIE PHILIP MD Reason for Consult: Abdominal pain, nausea and vomiting. Source of Information: patient, old records Exam Limitations: no limitations History of Present Illness: Ms. Epstein is a 57 year old female with a history of hypothyroidism who was admitted on 04/18/17 with a left sided ischemic CVA after she presented with right sided weakness. She was admitted and was started on aspirin and plavix. She has been having right sided abdominal pain for about a week and she notes that it started a few days prior to being admitted. She has been having sharp right sided lower abdominal pain and it has now migrated to her right flank. The pain is not exacerbated with eating and she hasn't been able to identify any other aggravating factors. She has been taking mortrin for the pain at home which has been helping. She had some associated vomiting with the pain on the day of admission, but not prior to that and she hasn't had any vomiting since she has been admitted. She has been without hematemesis. She denies any burning epigastric pain, heartburn or dysphagia. She has had some constipation for which she has been started on miralax and this has resulted in some loose stool. She has not had any rectal bleeding or melena. In spite of having bowel movements she has continued to have pain and she does not note any improvement or exacerabtion of the pain with her bowel movements. She has been getting motrin and tylenol as needed for her pain since admission and this has been helping. Allergies/Medications Allergies: Coded Allergies: NO KNOWN ALLERGIES (07/10/11) NKA PER ANTIBIOTIC ORDER SHEET (SJS) Home Med List: Aspirin (Aspirin*) 81 MG TAB.CHEW 1 TAB PO DAILY HEART HEALTH Atorvastatin Calcium (Lipitor) 80 MG TABLET 1 TAB PO DAILY HYPERLIPIDEMIA Calcium Carbonate/Vitamin D3 (Calcium 500 + D Tablet) (Unknown Strength) TABLET (Unknown Dose) PO DAILY SUPPLEMENT (Reported) Clopidogrel Bisulfate (Plavix) 75 MG TABLET 1 TAB PO DAILY ANTIPLATELET DRUG Dicyclomine Hydrochloride (Bentyl) 10 MG CAPSULE 1 CAP PO TID PRN ABDOMINAL PAIN Fish Oil/Dha/Epa (Fish Oil 1,200 MG Fish Oil) (Unknown Strength) CAPSULE ( Unknown Dose) PO DAILY SUPPLEMENT (Reported) Levothyroxine Sodium 112 MCG TABLET 1 TAB PO DAILY THYROID (Reported) Multivitamin (Multi-Day Vitamins) 1 EACH TABLET 1 TAB PO DAILY SUPPLEMENT ( Reported) Pantoprazole Sodium 40 MG TABLET. 1 TAB PO BID GASTRITIS Current Medications: Current Medications Sig/Germain Start time Last Medication Dose Route Stop Time Status Admin Acetaminophen 650 MG .STK-MED ONE 04/22 2059 DC PO 04/22 2100 Acetaminophen 650 MG Q6P PRN 04/18 2300 AC 04/22 PO 2057 Aspirin 81 MG DAILY 04/20 1000 AC 04/23 PO 09 Atorvastatin Calcium 80 MG 1700 04/20 1700 AC 04/22 PO 1712 Bisacodyl 5 MG DAILY 04/21 1000 AC 04/23 PO 0929 Calcium/Vitamin D 500 MG DAILY 04/19 1000 AC 04/23 PO 0929 Clopidogrel Bisulfate 75 MG DAILY 04/20 2126 AC 04/23 PO 09 Ibuprofen 600 MG .STK-MED ONE 04/22 2057 DC PO 04/22 2058 Ibuprofen 600 MG .STK-MED ONE 04/22 1715 DC PO 04/22 171 Ibuprofen 600 MG Q6P PRN 04/18 2300 AC 04/23 PO 0930 Levothyroxine Sodium 0.112 MG DAILY 04/19 1000 AC 04/23 PO 0929 Multivitamins 1 TAB DAILY 04/19 1000 AC 04/23 Therapeutic PO 0929 Polyethylene Glycol 17 GM DAILY 04/20 1943 AC 04/23 PO 0927 Senna 187 MG AT BEDTIME 04/20 2200 AC 04/21 PO 2115 Past History Travel History Traveled to [place] past 21 day No Medical History Blood Transfusion Hx: No Neurological: NONE EENT: NONE Cardiovascular: NONE Respiratory: NONE Gastrointestinal: NONE Hepatic: NONE Renal: NONE Musculoskeletal: NONE Psychiatric: NONE Endocrine: hypothyroidism Blood Disorders: NONE Cancer(s): NONE [employer]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 Ambulation: independent IADLs Independent: shopping, housework, finances, transportation, medication admin. Review of Systems Review of Systems Constitutional: Reports: weakness. Denies: diaphoresis, fever, malaise. EENTM: Reports: blurred vision. Cardiovascular: Denies: no symptoms. Respiratory: Denies: no symptoms. GI: Reports: see HPI. Genitourinary: Reports: dysuria. Denies: frequency, hematuria. Musculoskeletal: Denies: no symptoms. Skin: Denies: no symptoms. Neurological/Psychological: Reports: numbness, weakness. Hematologic/Endocrine: Denies: no symptoms. Immunologic/Allergic: Denies: no symptoms. All Other Systems: Reviewed and Negative Exam & Diagnostic Data Vital Signs and I&O Vital Signs Date Time Temp Pulse Resp B/P B/P Pulse O2 O2 Flow FiO2 Mean Ox Delivery Rate 04/23 0800 95 Room Air 04/23 0728 98.4 79 18 100/62 95 Room Air 04/22 2155 98.0 79 18 112/72 96 Intake & Output 04/23 04004/22 0400 04/21 0400 Intake Total 562 480 480 428.8 120 Output Total 600 Balance -38 480 480 428.8 120 Intake, IV 2 138.8 Intake, Oral 560 480 480 290 120 Number 1 Bowel Movements Output, Urine 600 Patient 159 lb Weight Weight Reported by Patient Measurement Method Physical Exam General Appearance: well developed/nourished, no apparent distress, alert, comfortable Head: atraumatic, normal appearance Eyes: Bilateral: normal appearance. Ears, Nose, Throat: normal pharynx, normal ENT inspection, hearing grossly normal Neck: normal inspection, supple, full range of motion Respiratory: normal breath sounds, chest non-tender, no respiratory distress Cardiovascular: regular rate/rhythm Gastrointestinal: normal bowel sounds, soft, non-tender, no peritoneal signs and no reproducible pain. Rectal: deferred Back: normal inspection, normal range of motion Extremities: normal inspection, normal capillary refill, normal range of motion Neurologic/Psych: awake, alert, oriented x 3 Skin: intact, normal color, warm/dry Results Pertinent Lab Results: Laboratory Tests 04/23 04/22 04/22 1200 1240 0754 Chemistry Sodium (137 - 145 mmol/L) 139 Potassium (3.5 - 5.1 mmol/L) 4.9 Chloride (98 - 107 mmol/L) 105 Carbon Dioxide (22 - 30 mmol/L) 25 Anion Gap (5 - 16) 9 BUN (7 - 17 mg/dL) 15 Creatinine (0.5 - 1.0 mg/dL) 0.6 Estimated GFR (>60 ml/min) > 60 BUN/Creatinine Ratio (7 - 25 %) 25.0 Lactic Acid (0.7 - 2.1 mmol/L) 2.1 1.3 Total Bilirubin (0.2 - 1.3 mg/dL) 0.5 Direct Bilirubin (< 0.4 mg/dL) 0.2 AST (14 - 36 U/L) 46 H ALT (9 - 52 U/L) 56 H Alkaline Phosphatase (<127 U/L) 80 Lactate Dehydrogenase (313 - 618 U/L) 552 Pending Total Protein (6.3 - 8.2 g/dL) 6.7 Albumin (3.5 - 5.0 g/dL) 4.2 Urines Urine Color (YEL,AMB,STR) YEL Urine Clarity (CLEAR) CLEAR Urine pH (5.0 - 8.0) 7.0 Ur Specific Kinder (1.001 - 1.035) 1.015 Urine Protein (NEG,<30 MG/DL) NEG Urine Ketones (NEG) NEG Urine Nitrite (NEG) NEG Urine Bilirubin (NEG) NEG Urine Urobilinogen (0.1 - 1.0 EU/dl) 0.2 Ur Leukocyte Esterase (NEG) TRACE H Ur Microscopic SEDIMENT EXAMINED Urine RBC (0 - 5 /HPF) RARE Urine WBC (0 - 2 /HPF) 5-10 H Ur Epithelial Cells (NONE,FEW) FEW Urine Bacteria (NEG/NONE) FEW H Urine Mucus (FEW,NONE) FEW Urine Hemoglobin (NEG) NEG Urine Glucose (N MG/DL) NEG 04/21 04/21 1200 0020 Coagulation APTT (25 - 37 SEC) Cancelled 81 H Imaging/Other Studies: SERVICE DATE: 04/22/17- EXAM TYPE: CAT - CT ABD & PELVIS W ORAL & IV CO EXAMINATION: CT ABDOMEN AND PELVIS WITH CONTRAST CLINICAL INFORMATION: Right lower quadrant pain. COMPARISON: Ultrasound abdomen 04/21/[address] abdomen pelvis 04/18/2017. TECHNIQUE: Multidetector volumetric imaging was performed of the abdomen and pelvis before and after the IV administration of 94 mL of Optiray 320 intravenous contrast. Sagittal and coronal reformatted images were obtained on the technologist's workstation. DLP: 450 mGy-cm FINDINGS: LUNG BASES: The visualized lung bases are unremarkable. LIVER, GALLBLADDER, AND BILIARY TREE: The liver is normal in size, shape, and attenuation. No focal hepatic lesion or biliary ductal dilatation is present. The gallbladder is unremarkable with no evidence of radiopaque gallstones, gallbladder wall thickening, or obvious pericholecystic inflammatory changes. PANCREAS: Unremarkable. SPLEEN: The 2.4 x 1.7 cm nonenhancing area along the posterior inferior tip of spleen unchanged from 04/18/2017 exam. This could be related to flow phenomena or an atypical hemangioma rest of the spleen is unremarkable. ADRENAL GLANDS: Unremarkable. KIDNEYS AND URETERS: The kidneys are normal in size, shape, and attenuation. No hydronephrosis, hydroureter, or calculi seen. No perinephric stranding. There are nonenhancing upper and lower pole cortex left kidney lesions the upper pole lesion is higher attenuation 32 Hounsfield units and lower pole lesion measures water density. BLADDER: Unremarkable. GASTROINTESTINAL TRACT: There is scattered stool seen throughout the colon most concentrated in the cecum and ascending colon. There is no colonic distention. The small bowel loops are normal caliber. Appendix is normal caliber. No inflammatory process seen in the right lower quadrant No free air or free fluid seen. ABDOMINAL WALL: No significant hernia is appreciated. LYMPH NODES: Normal. VASCULAR: Unremarkable. PELVIC VISCERA: There is no free air or free fluid. Several scattered phleboliths are seen in the right pelvis. OSSEOUS STRUCTURES: There is no lytic or sclerotic process seen. IMPRESSION: No acute intra-abdominal process seen. Moderate stool in the cecum and right colon. There is no bowel distention. The seen. Simple cyst lower pole and indeterminate high attenuation lesion upper pole left kidney. These are unchanged to previous CTA study. Small none enhancing lesion in spleen. It is stable. Differential diagnoses includes probably related to contrast flow phenomena or atypical hemangioma. It is stable. SERVICE DATE: 04/21/17- EXAM TYPE: US - US-LIMITED ABDOMEN EXAMINATION: US ABDOMEN LIMITED CLINICAL INFORMATION: Abdominal pain. COMPARISON: None TECHNIQUE: Real-time imaging of the right upper quadrant abdominal viscera. FINDINGS: PANCREAS: Not well visualized LIVER: Normal. The liver demonstrates normal size, contour and echogenicity. No focal lesion or intrahepatic biliary duct dilatation. GALLBLADDER: Normal. The gallbladder is physiologically distended without evidence of stones, sludge, polyps, wall thickening or pericholecystic fluid. COMMON BILE DUCT: Normal in caliber measuring 0.5 cm in diameter. RIGHT KIDNEY: Normal. No hydronephrosis. No renal calculi or focal parenchymal lesions. The kidney measures 10.6 cm in maximum dimension. FREE FLUID: None. IMPRESSION: Limited visualization of the pancreas otherwise unremarkable exam. colonoscopy 2014: EXTENT REACHED: Terminal ileum. QUALITY OF PREP: Good. PROCEDURE: After getting written informed consent the patient was placed in the left lateral decubitus position with pulse oximetry, cardiac monitoring and supplemental oxygen given. IV sedation was given until the desired effect was achieved. A rectal exam was normal. A high-definition variable stiffness Olympus colonoscope was then inserted into the anus and advanced to the terminal ileum with little difficulty. Retroflexed views were obtained in both the right colon and the rectum and photodocumentation was obtained. Close inspection of the colonic mucosa was performed on insertion and withdrawal of the colonoscope with a withdrawal time that was adequate in length to closely inspect all folds and bauer of the colon. FINDINGS: There was a 3 mm sessile polyp in the rectum, which was removed with cold biopsy forceps and sent to pathology for further evaluation. There was a 1 cm pedunculated polyp in the sigmoid colon at 40 cm from the anus and another 8 mm sessile polyp at 30 cm from the anus. Both of those polyps were removed with snare polypectomy and monopolar cautery and retrieved through the colonoscope and sent to pathology for further evaluation. The remainder of the visualized colonic mucosa was grossly unremarkable. Retroflexed views in the rectum revealed small internal hemorrhoids. Retroflexed views in the right colon did not reveal any neoplasia. The terminal ileum was normal in appearance. IMPRESSION: 1. Polyps x3 status post removal via a combination of snare polypectomy and biopsy forceps. 2. Internal hemorrhoids. A. POLYP, SIGMOID COLON, POLYPECTOMY: TUBULAR ADENOMA. NEGATIVE FOR INVASIVE CARCINOMA. STALK NEGATIVE FOR ADENOMATOUS CHANGE. B. POLYP, SIGMOID COLON, POLYPECTOMY: TUBULAR ADENOMA. NEGATIVE FOR INVASIVE CARCINOMA. C. POLYP, RECTUM, POLYPECTOMY: TUBULAR ADENOMA. NEGATIVE FOR INVASIVE CARCINOMA. Assessment/Plan Assessment/Recommendations: Assessment: Ms. Epstein is a 57 year old female admitted for a CVA a few days ago who has been doing well from a neurological perspective, but she has had persistent right sided abdominal discomfort of uncertain etiology. As she is without any concerning GI warning signs, isn't anemic and has had an unremarakble ct scan and US I feel her symptoms are likely benign and functional or musculoskeletal in etiology considering the pain is not related to eating or her constipation which has improved with miralax and has been responding to NSAIDs. She has been noted to have an increasing lactic acid raising the concern that her symptoms may be secondary to mesenteric ischemia especially as she has been throwing emboli from her aortic valve leading to her stroke, but her symptoms are not consistent with this (no pain with eating, diarrhea or weight loss) and her ct scan doesn't show any bowel wall thickening that one would expect to see if her symptoms were from mesenteric ischemia. She had a screening colonoscopy 3 years ago during which time 3 adenomas were removed so she is due for a sureveillance colonoscopy now, however, this isn't urgent and it can and should be pursued as an outpatient. As she is tolerating a diet and her pain is well controlled with nsaids I feel it would be safe to discharge her home if there are no other active issues to follow up as an outpatient to continue to evaluate the etiology of her pain. Recommendations: 1. High fiber diet as tolearted 2. Analgesia with nsaids as needed 3. Consider a trial of an anti-spasmodic such as bentyl or levsin as needed 4. She should follow up as an outpatient for a surveillance colonoscopy. 5. Would start an oral ppi for GI prophylaxis considering the nsaids she is taking. 6. If she is going to be here for other reasons would keep NPO after midnight for a diagnostic EGD in the am otherwise this can be done as an outpatient. I will continue to follow this patient and make further recommendations based on the results of the EGD, if it is done tomorrow, and her clinical course. Problem List: 1. Aortic thrombus 2. Abdominal pain 3. Ischemic stroke diagnosed during current admission Copies To: NEELAM HUGHES,RISHABH Cabrales. Consult Acknowledgment - Thank you for your consult request.
[2017-04-23 23:21] VITALS: BP 100/60
[2017-04-24 06:52] VITALS: BP 100/62
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
[2017-04-24] MEDS ORDERED: PLAVIX75 M1 PO (08:38)
[2017-04-24] MEDS ORDERED: LIPITOR80 M1 PO (08:38)
[2017-04-24] MEDS ORDERED: BENTYL10 M1 PO (08:38)
[2017-04-24] MEDS ORDERED: ASPIRIN81 M4 PO (08:38)
[2017-04-24] MEDS ORDERED: OMEPRAZOLE40 M1 PO ×2 (08:38→14:00)
--- NOTE | 2017-04-24 11:04 | PN- Cardiology ---
Subjective Subjective: The patient continues to complain of abdominal discomfort. No chest pain. No palpitations. No diaphoresis. Objective Vital Signs and I&Os Vital Signs Date Time Temp Pulse Resp B/P B/P Pulse O2 O2 Flow FiO2 Mean Ox Delivery Rate 04/24 0652 98.1 80 18 100/62 96 Room Air 04/24 0000 Room Air 04/23 2321 98.0 78 18 100/60 97 Room Air 04/23 1511 98.6 74 18 110/60 96 Room Air Intake & Output 04/24 1600 04/24 0804/24 0000 04/23 1600 04/23 0000 Intake Total 240 560 362 200 480 Output Total 200 400 Balance 240 560 162 -200 480 Intake, IV 20 2 Intake, Oral 240 540 360 200 480 Number 1 Bowel Movements Output, Urine 200 400 Patient 159 lb Weight Weight Reported by Patient Measurement Method Physical Exam: Gen: NAD HEENT: normal Lungs: clear to auscultation, normal resp. effort Heart: RRR, S1, S2, no murmurs Abdomen: Soft, nontender, no masses Extremities: No clubbing, cyanosis, or edema. Neuro: Alert and oriented x 3, cranial nerves intact Current Medications: Current Medications Sig/Germain Start time Last Medication Dose Route Stop Time Status Admin Acetaminophen 650 MG Q6P PRN 04/18 2300 AC 04/22 PO 2058 Aspirin 81 MG DAILY 04/20 1000 AC 04/24 PO 0916 Atorvastatin Calcium 80 MG 1700 04/20 1700 AC 04/23 PO 1624 Bisacodyl 5 MG DAILY 04/21 1000 AC 04/24 PO 0916 Calcium/Vitamin D 500 MG DAILY 04/19 1000 AC 04/24 PO 0916 Clopidogrel Bisulfate 75 MG DAILY 04/206 AC 04/24 PO 0916 Dicyclomine HCl 20 MG 4 TIMES/DAY 04/23 1800 AC 04/24 PO 0916 Ibuprofen 600 MG Q6P PRN 04/18 2300 AC 04/23 PO 0930 Levothyroxine Sodium 0.112 MG DAILY 04/19 1000 AC 04/24 PO 0916 Multivitamins 1 TAB DAILY 04/19 1000 AC 04/24 Therapeutic PO 0916 Pantoprazole Sodium 40 MG DAILY 04/23 1706 AC 04/24 IV 0918 Polyethylene Glycol 17 GM DAILY 04/20 1943 AC 04/23 PO 09 Senna 187 MG AT BEDTIME 04/20 2200 AC 04/21 PO 2115 Results Last 48 Hrs of Labs/Mics: Laboratory Tests 04/23/17 1600: Lactic Acid 1.2 04/23/17 1200: Lactic Acid 2.1, Total Bilirubin 0.5, Direct Bilirubin 0.2, AST 46 H, ALT 56 H , Alkaline Phosphatase 80, Lactate Dehydrogenase 552, Total Protein 6.7, Albumin 4.2, Urine Color YEL, Urine Clarity CLEAR, Urine pH 7.0, Ur Specific [place] 1.015, Urine Protein NEG, Urine Ketones NEG, Urine Nitrite NEG, Urine Bilirubin NEG, Urine Urobilinogen 0.2, Ur Leukocyte Esterase TRACE H, Ur Microscopic SEDIMENT EXAMINED, Urine RBC RARE, Urine WBC 5-10 H, Ur Epithelial Cells FEW, Urine Bacteria FEW H, Urine Mucus FEW, Urine Hemoglobin NEG, Urine Glucose NEG 04/22/17 1240: Lactic Acid 1.3 Assessment/Plan Assessment/Plan Impression: 1. CVA; right parahippocampal gyrus/right posterior basal ganglia; right occipital lobe. 2. Possible intraluminal filling defect in distal descending thoracic aorta below the innominate artery consistent with plaque, thrombus, etc. 3. History of hypothyroidism 4. History of tobacco use 5. Persistent abdominal discomfort Recommendations: * GI evaluation in progress for abdominal discomfort. * Continue aspirin, Plavix, and high-dose statin * Follow neurology recommendations for CVA * Follow up with Dr. Childress in one week after discharge. * VIJAY as outpatient. 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 Continue telemetry? Yes
--- NOTE | 2017-04-24 12:52 | Proc Note Endoscopy ---
Endoscopy Procedure Medical History: unchanged (see meditech consult) Mental Status: alert/oriented Heart/Lung Eval Prior to Sedation: within normal limits Candidate for Sedation? Yes Procedure Date: 04/24/17 Procedure Type: EGD w/biopsy It Support Analyst: Nba Lovell MD ASA Classification: III Indications: Abdominal pain. Instrument: diagnostic gastroscope Meds Received: MAC Patient's Tolerance: good Complications: none Extent Reached: second part of duodenum Procedure: After getting written informed consent the patient was placed in the left lateral decubitus position with pulse oximetry, cardiac monitoring, and supplemental oxygen given. A bite block was inserted and IV sedation was given until the desired effect was achieved. A high definition upper Olympus endoscope was then inserted into the mouth and advanced to the second portion of the duodenum with little difficulty. Retroflexed views and photodocumentation was obtained. Findings: Esophagus: The upper esophageal mucosa was grossly normal appearance. At 33 cm from the incisors were several linear erosions which extended to and became more prominent with a few ulcerations at the Z line at 36 cm from the incisors, but there were no masses or strictures appreciated. The hiatal narrowing was at 39- 40 cm from the incisors accounting for a 3-4 cm sliding hiatal hernia. Biopsies were obtained from the Z line with cold biopsy forceps and were sent to pathology for further valuation. Stomach: The antral mucosa was mildly erythematous with a few scattered erosions , but there were no ulcers or masses appreciated. Distention and peristalsis of the stomach appeared normal. Retroflexed views revealed a small hiatal hernia. Random biopsies were obtained from the antrum and the body of the stomach with cold biopsy forceps and were sent to pathology for further valuation. Duodenum: The duodenal bulb was mildly erythematous, but there were no ulcers or erosions appreciated. The duodenal sweep, and folds were grossly normal in appearance. Random biopsies were obtained from the second portion of the duodenum and were sent to pathology for further evaluation. Impression: 1. LA grade C reflux esophagitis status post biopsies. 2. 3-4 cm sliding hiatal hernia. 3. Mild erosive gastritis and non-erosive duodenitis status post gastric biopsies. 4. Grossly normal small bowel folds and the biopsies. Recommendations: 1. Change to an oral PPI twice a day for now. 2. She should follow an antireflux regimen. 3. She should follow up the pathology results me as an outpatient. 4. Consideration will be given to repeat the upper endoscopy in 3-6 months on a PPI to confirm healing of the esophagitis and rule out underlying Val[place]illo's esophagus. 5. Her diet should be advanced as tolerated and if there are no other active issues consideration should be given to discharge the patient home later today. CC: NEELAM HUGHES,RISHABH Clarke
[2017-04-24] MEDS ORDERED: PANTOPRAZOLE SO40 M1 PO (14:03)
== END 2017-04-24 15:30 | DRG 197 ==
LOC: ERH 14:37 → ERHI 21:56 → 1NO 21:56 → ENRESERV 22:45 → 1NO 23:44 → ENPENDDIS 04-24 14:17 → 1NO 04-24 15:30
PROVIDERS: Emergency Medicine; Internal Medicine; ADMIT Student in an Organized Health Care Education/Training Program
PROC: 0DB58ZX Excision of Esophagus, Via Natural or Artificial Opening Endoscopic, Diagnostic (ICD-10-PCS; principal; 2017-04-24)
PROC: 0DB68ZX Excision of Stomach, Via Natural or Artificial Opening Endoscopic, Diagnostic (ICD-10-PCS; 2017-04-24)
PROC: 0DB98ZX Excision of Duodenum, Via Natural or Artificial Opening Endoscopic, Diagnostic (ICD-10-PCS; 2017-04-24)
DX: I74.11 Embolism and thrombosis of thoracic aorta (principal); I63.9 Cerebral infarction, unspecified; E86.1 Hypovolemia; F17.210 Nicotine dependence, cigarettes, uncomplicated; K21.0 Gastro-esophageal reflux disease with esophagitis; K44.9 Diaphragmatic hernia without obstruction or gangrene; K29.60 Other gastritis without bleeding; I70.0 Atherosclerosis of aorta; K29.80 Duodenitis without bleeding; E89.0 Postprocedural hypothyroidism; K22.70 Barrett's esophagus without dysplasia; N28.1 Cyst of kidney, acquired; G81.94 Hemiplegia, unspecified affecting left nondominant side; A08.4 Viral intestinal infection, unspecified
CPT/HCPCS: 1NSP; 70551; 36415; 74174; 74177; 81001; 82436; 87086; 93005; 93010; 93306; 96360; 96361; 97116-GO; 97161-GP; 97165-GO; 97530-GO; J0131; J1644; J1650; J2405; J3490; J7042